=== PATIENT | female | born 1950 | race Caucasian/White ===

== ENCOUNTER → 2019-09-17 15:42 | Outpatient (CLI) | payer MEDICARE, SELFPAY ==
[2017-02-25 17:53] VITALS: BMI 21.4
--- NOTE | 2019-09-17 15:18 | MASS_PTH ---
PATIENT: GONZALO PAK LOC: [facility] U#:[id number] AGE/SX: 75/F ROOM: RE09/17/[address]: Dr. Wilian Cardenas MD : 1950 BED: DIS: SPEC #: [id number] RECD: 09/17/19 15:32 STATUS: THERESA RIVAS #: [id number] DAVID: 09/17/19 15:[address]: Wilian Cardenas DEPT: SURGICAL PATHOLOGY RECD BY: Salima Nicholson ENTERED: 09/20/19 08:00 SP TYPE: Mass OTHR DR: Dr. Luis Velazco MD Tissues: Ear, NOS Procedures: Special Stain Group I Surgery Specimen Level IV GMS Stain (control) HEADER OPERATION: PRE-OP DIAGNOSIS: Mass in left ear TISSUE SUBMITTED: Left ear MICROSCOPIC DIAGNOSIS Mass of left ear, biopsy: Hyperkeratosis and focal acanthosis. Ulceration with associated acute inflammation and granulation. Negative for fungal organisms. See comment. AM:jeanna 09/21/19 COMMENT GMS stain with matched control was used in the evaluation of this case and is negative for fungal organisms. MICROSCOPIC DESCRIPTION Slides are reviewed. GROSS DESCRIPTION Received in fixative is one container labeled with the patient's name and designated left ear. The specimen consists of two fragments of cardozo-white skin and soft tissue that in aggregate measure 0.3 x 0.3 x 0.1 cm. The specimen is totally submitted in one cassette. / ALANIS:jeanna 09/20/19 TC:2 CPT: 68744, [id number]
== END ==
PROVIDERS: PCP Family Medicine; Referring Provider Otolaryngology; Visit Provider Otolaryngology
DX: H93.8X2 Other specified disorders of left ear (principal)
CPT/HCPCS: 88305; 88312

== ENCOUNTER 2020-07-29 01:49 | Emergency (ER) | payer MEDICARE, MEDICAID, SELFPAY ==
[2020-07-29 01:49] VITALS: BP 112/85; PULSE 88; RESP 20; TEMP 36.3; O2SAT 100; BMI 21.2
--- NOTE | 2020-07-29 01:52 | RAD_ITS ---
STUDY: X-RAY - RIGHT SHOULDER REASON FOR EXAM: Female, 70 years old. S/P FALL -- C/O RT SHOULDER PAIN TECHNIQUE: 3 view(s) of the shoulder. COMPARISON: None. FINDINGS: Normal glenohumeral articulation. Normal acromioclavicular joint. Normal acromion. There is a markedly displaced fracture in the proximal metaphysis of the right humerus. The soft tissue structures are unremarkable. Normal visualized pulmonary apex. RAD/Shoulder min 2 Views IMPRESSION: There is a markedly displaced fracture in the proximal metaphysis of the right humerus. Electronically Signed: Eleuterio Nguyen MD at 2:25 EST Tel , Service support ,
--- NOTE | 2020-07-29 01:53 | ED.DCSUM_ITS ---
History of Present Illness Chief Complaint: Upper Extremity Injury Informant: Patient Onset: Today Context: Sudden Onset Timing: Continuous Current Severity: Moderate Maximum Severity: Severe Narrative: Patient is a 70-year-old female with medical history significant for hypertension, hyperlipidemia, and smoking who presents to the emergency department after a fall. Patient was at her daughter's house. She states that she slipped on ice and fell backwards. She landed directly on her right shoulder. She did not strike her head or lose consciousness. She states since the fall, she has had increasing pain in her shoulder. She states that hurts to move in any way. She is never had surgery on the shoulder. She denies any history of dislocation. Prior similar symptoms: No Recent Illness/Hospitalization: No Past Medical History - Allergies and Home Meds Allergies/Adverse Reactions: Allergies No Known Allergies Allergy (Verified 07/29/20 01:54) Primary Care Physician: Luis Velazco MD [Primary Care Provider] - Prior records reviewed: Yes Past Medical History: - - Hypertension, hyperlipidemia Surgical History: appendectomy, cholecystectomy, hysterectomy, tonsillectomy, - - Small bowel resection x 1 (SBO). Smoking Status: Current every day smoker - Family History Maternal Family History: Reports: No pertinent history Paternal Family History: Reports: No pertinent history Review of Systems General: Denies: Chills, Fever, Sweats Eyes: Denies: Visual changes - bilaterally, Diplopia ENT: Denies: Rhinorrhea, Sore throat Cardiovascular: Denies: Chest pain, Palpitations Respiratory: Denies: Dyspnea, Cough, Dyspnea on exertion Gastrointestinal: Denies: Abdominal pain, Nausea, Vomiting, Diarrhea, Melena, Hematochezia Genitourinary: Denies: Dysuria, Hematuria, Frequency Musculoskeletal: Denies: Back pain, Extremity Pain Skin: Denies: Rash, Wounds Neurological: Denies: Headache, Weakness, Numbness Physical Exam Vital Signs/Narrative: Vital Signs Temp Pulse Resp BP Pulse Ox 07/29/20 01:49 97.3 F L 88 20 H 112/85 H 100 Inital Vital Signs reviewed: Yes General: Well nourished, Well developed, No Acute Distress Head: Normocephalic, Atraumatic Eyes: Perrl, EOMI ENT: Moist mucous membranes, No rhinorrhea Neck: Supple, Nontender Cardiovascular: Regular rate, Regular rhythm, No murmurs Respiratory: No distress, CTA bilaterally, Chest nontender Abdomen: Soft, Nontender, Nondistended, Normal bowel sounds Back: Nontender, Normal Inspection Extremities: No edema, Tenderness - Tenderness to palpation over the shoulder. No obvious dislocation. 2+ symmetric pulses of the upper extremity. Axillary n erve is preserved. Guards against range of motion secondary to pain. Skin: Normal color, No rash Neurological: Alert, Oriented x3, Cranial nerves II-XII grossly intact, Normal Strength, Normal Sensation Psychological: Normal affect, Normal Mood Diagnostic/Tx/Re-eval Clinical Impression(s) from Imaging Studies Shoulder X-Ray 07/29/20 01:52 IMPRESSION: There is a markedly displaced fracture in the proximal metaphysis of the right humerus. Electronically Signed: Eleuterio Nguyen MD at 2:25 EST Tel , Service support , - Medical Decision Making The patient presents with shoulder pain after fall. Her axillary nerve is preserved. Her pulses are normal. There is no compartment tenderness or fullness. Plain films were obtained. There was reviewed by both myself and the radiologist. She does have a proximal humerus fracture with an upward shift of the humerus. The actual shoulder joint is seated without dislocation. I did discuss this fracture with Dr. Rodriguez. He agrees that attempting any manipulation would likely not improve the outcome as there is no bone purchase that I would be able to formally reduce. He agreed with sling placement to gravity and pain control. The patient will be discharged with outpatient orthopedic follow-up. Impression 1. Closed displaced proximal humerus fracture ED Disposition - Plan for ED Patient: Instructions: ED Fracture, Shoulder Prescriptions: Oxycodone HCl/Acetaminophen [Percocet 5/325] 1 tab PO Q6H PRN PRN 5 Days #20 tab PRN Reason: Pain/Inflammation Prescription Printed Referrals: Cleveland Rodriguez MD [STAFF PHYSICIAN] - 3-5 Days
[2020-07-29] MEDS: HYDROmorphone 1 MG/ML Syringe IM (02:12)
[2020-07-29] MEDS: oxyCODONE 5 MG Tablet 10 MG PO (03:18)
[2020-07-29 03:22] VITALS: BP 125/83; PULSE 86; RESP 16; O2SAT 93
== END 2020-07-29 03:37 | disposition home or self-care (01) ==
PROVIDERS: Emergency Provider Emergency Medicine; PCP Family Medicine
DX: S42.201A Unspecified fracture of upper end of right humerus, initial encounter for closed fracture (principal); W00.0XXA Fall on same level due to ice and snow, initial encounter; E78.5 Hyperlipidemia, unspecified; I10 Essential (primary) hypertension; Z90.49 Acquired absence of other specified parts of digestive tract; Z90.710 Acquired absence of both cervix and uterus; F17.200 Nicotine dependence, unspecified, uncomplicated
CPT/HCPCS: 73030; 96372; 99285

== ENCOUNTER 2020-12-28 13:41 | Inpatient (IN) | payer MEDICARE, SELFPAY ==
[2020-12-28] VITALS (13 sets, daily range): BP systolic 76–121; BP diastolic 54–97; PULSE 109–128; RESP 14–25; TEMP 36.1–37.2; O2SAT 95–100; BMI 22.1; BMI 21.2
--- NOTE | 2020-12-28 14:04 | NURSING ---
NO OLD EKGS
[2020-12-28] MEDS: 0.9% Normal Saline 1,000 ML 1000 ML IV (14:13)
--- NOTE | 2020-12-28 14:13 | RAD_ITS ---
STUDY: X-RAY CHEST REASON FOR EXAM: Female, 70 years old. Weakness TECHNIQUE: Single AP portable view of the chest. COMPARISON: Comparison is made with prior study 02/27/2017. FINDINGS: EKG electrodes are seen. The lungs are clear and expanded. There is no demonstrated pleural abnormality. Normal size heart. Normal mediastinum and pete. Normal visualized pulmonary arteries. There is atherosclerotic calcification of the aortic arch with tortuosity. There is a mild dextroscoliosis of the thoracic spine. Status post right shoulder replacement. There is no demonstrated abnormality of the visualized soft tissue structures of the upper abdomen. RAD/Chest 1 View (Portable) IMPRESSION: No acute abnormality is seen. Electronically Signed: Anthony Melchor MD at 15:01 EDT , Service support ,
--- NOTE | 2020-12-28 14:14 | EKG12_ITS ---
Test Reason : UNRESPONSIVE Blood Pressure : / mmHG Vent. Rate : 128 BPM Atrial Rate : 128 BPM P-R Int : 100 ms QRS Dur : 082 ms QT Int : 302 ms P-R-T Axes : 016 047 -50 degrees QTc Int : 440 ms Sinus tachycardia with short VT Nonspecific ST and T wave abnormality Abnormal ECG Confirmed by BALDEV MAIER, SHANTELL ([id number]), state editor BELTRAN ARELLANO ([id number]) on 12/29/2020 1:06:04 PM Referred By: PHIL Confirmed By:SHANTELL DE PAZ MD
--- NOTE | 2020-12-28 14:15 | EDS_ITS ---
HPI History of Present Illness Chief Complaint: Weakness Informant: patient Onset/Context/Timing Onset: Weeks Context: Gradual Onset Timing: Continuous Quality: Weakness Location: Generalized Worsened by: Nothing Relieved by: Nothing Narrative Narrative: Patient presents with generalized weakness that has been getting worse over the past few weeks. Patient states she is having difficulty ambulating due to the weakness. Patient states she feels weak all over. Patien t states nothing makes it better nothing makes it worse. Patient admits to some recent diarrhea and nausea. Patient denies any melena or hematochezia. Patient admits to some shortness of breath and occasional palpitations. Patient admits to history of alcohol abuse but has not had any alcohol in the last 4 days. Patient denies any tremors or seizures. [facility] Medical History (Updated 12/28/20 @ 17:40 by Ximena Infante) Alcoholism Anxiety Depression GERD (gastroesophageal reflux disease) HTN (hypertension) Hx of small bowel obstruction Home Medications atorvastatin 10 mg PO QHS 02/25/17 [History Last Taken 2 Days Ago ~12/26/20] omeprazole 40 mg PO BID 02/25/17 [History Last Taken 2 Days Ago ~12/26/20] venlafaxine 150 mg PO DAILY 02/25/17 [History Last Taken 2 Days Ago ~12/26/20] bupropion HCl 75 mg PO BID 07/29/20 [History Last Taken 2 Days Ago ~12/26/20] lisinopril 40 mg PO BID 07/29/20 [History Last Taken 2 Days Ago ~12/26/20] spironolactone 25 mg PO DAILY 07/29/20 [History Last Taken 2 Days Ago ~12/26/20] buspirone 15 mg PO BID 12/28/20 [History Last Taken 2 Days Ago ~12/26/20] metoprolol succinate 100 mg PO DAILY 12/28/20 [History Last Taken 2 Days Ago ~12/26/20] venlafaxine 75 mg PO DAILY 12/28/20 [History Last Taken 2 Days Ago ~12/26/20] Allergy/AdvReac Type Severity Reaction Status Date / Time No Known Allergies Allergy Verified 07/29/20 01:54 Surgical History (Updated 12/28/20 @ 17:37 by Ximena Infante) H/O shoulder replacement History of appendectomy History of hemorrhoidectomy History of hysterectomy History of intestinal surgery Hx of cholecystectomy Social History Smoking Status: Current every day smoker tobacco type: cigarettes ROS ROS ED Constitutional Constitutional ED: Denies chills or fever(s) Eyes Eyes: Denies blurry vision or change in vision ENT ENT ED: Denies rhinorrhea or sore throat Cardiovascular Cardiovascular: Reports palpitations; Denies chest pain Respiratory/Chest Respiratory/Chest: Reports dyspnea; Denies cough Gastrointestinal Gastrointestinal: Reports diarrhea and nausea; Denies vomiting Genitourinary Genitourinary ED: Denies dysuria or hematuria Musculoskeletal Musculoskeletal: Reports arthralgias and back pain Integumentary Denies abscess or rash Neurologic Neurologic: Reports headache(s) and weakness Allergic/Immunologic Allergic/Immunologic ED: Denies mouth swelling or urticaria EXAM Physical Exam Const Vital Signs: 12/28/20 13:42 12/28/20 13:46 12/28/20 14:56 Temperature 98.2 F Temperature Source Temporal Pulse Rate 126 H 128 H 121 H Respiratory Rate 18 14 22 H Respiratory Effort Respiratory Pattern Blood Pressure 89/75 L 76/54 L 77/55 L Blood Pressure Mean 79 61 62 Pulse Ox 96 99 95 Oxygen Delivery Method Room Air Room Air Room Air Oxygen Flow Rate (L/min) 12/28/20 14:57 12/28/20 15:42 12/28/20 16:10 Temperature 96.9 F L Temperature Source Temporal Pulse Rate 119 H 109 H Respiratory Rate 14 14 Respiratory Effort Normal Respiratory Pattern Normal Blood Pressure 103/83 H 121/74 H Blood Pressure Mean 89 89 Pulse Ox 100 100 Oxygen Delivery Method Nasal Cannula Nasal Cannula Oxygen Flow Rate (L/min) 1 2 12/28/20 17:18 12/28/20 17:27 Temperature 98.4 F Temperature Source Temporal Pulse Rate 118 H 117 H Respiratory Rate 15 18 Respiratory Effort Respiratory Pattern Blood Pressure 121/85 H 109/80 Blood Pressure Mean 97 89 Pulse Ox 98 98 Oxygen Delivery Method Room Air Room Air Oxygen Flow Rate (L/min) Positive well nourished and well developed General Appearance ED: well developed HEENT Reports moist mucous membranes Eyes PERRL Neck supple and no JVD Chest Wall inspection of chest normal and palpation of chest normal Resp normal respiratory effort Auscultation: diminished lung sounds diffuse Cardio regular rhythm and no murmurs Rate: tachycardic GI normal to inspection, nondistended, normoactive bowel sounds and non-tender Palpation: soft Neuro oriented x3, CN's II-XII intact bilaterally and no sensory deficits noted Sensorium / Orientation: alert Motor Exam: strength 5/5 throughout Psych mental status grossly normal MDM MDM MDM Narrative Medical decision making narrative: Patient was given 2 L of normal saline IV. CBC shows a normal white blood cell count. There is a mild anemia with a hemoglobin of 10.5 hematocrit 31.1. Platelets were normal. Comprehensive metabolic profile shows sodium of 131 and chloride of 91. BUN was 40 and creatinine was 1.78. Anion gap was slightly elevated at 16. Lactate was 4. Lipase was elevated at 1417. Urinalysis shows leukocyte esterase of 25 with positive nitrites and 2+ bacteria. There are 0-5 white blood cells and 0-5 epithelial cells. Portable 1 view chest x-ray was obtained. On my interpretation, lung aponte are clear. There is normal cardiac silhouette. Bony thorax is normal. There is no acute process noted. Radiologist also interpreted the x-ray and agrees. CT scan of the brain was obtained. There is no acute intracranial abnormality. This was interpreted by the radiologist and reviewed by myself. EKG was obtained. On my interpretation, it showed a normal sinus rhythm with a rate of 128. VA interval, QRS interval, and QTc intervals were all normal. Schlater was normal. There are nonspecific ST-T wave changes. Patient was given a dose of Rocephin here. Case was discussed with the hospitalist. He will admit the patient to his service. Patient understood and was agreeable with the plan. All questions were answered. Lab Data Attestation: I reviewed the patient's lab results. Labs: Laboratory Results - last 24 hr 12/28/20 12/28/20 12/28/20 13:45 13:45 13:45 WBC Cancelled Corrected WBC Cancelled RBC Cancelled Hgb Cancelled Hct Cancelled MCV Cancelled MCH Cancelled MCHC Cancelled RDW Std Deviation Cancelled RDW Coeff of Jus Cancelled Plt Count Cancelled MPV Cancelled Immature Gran % (Auto) Cancelled Neut % (Auto) Cancelled Lymph % (Auto) Cancelled Snyder % (Auto) Cancelled Eos % (Auto) Cancelled Baso % (Auto) Cancelled Absolute Neuts (auto) Cancelled Absolute Lymphs (auto) Cancelled Total Counted Cancelled Neutrophils % (Manual) Cancelled Band Neutrophils % Cancelled Lymphocytes % (Manual) Cancelled Monocytes % (Manual) Cancelled Eosinophils % (Manual) Cancelled Basophils % (Manual) Cancelled Metamyelocytes % Cancelled Myelocytes % Cancelled Promyelocytes % Cancelled Blast Cells % Cancelled Plasma Cell % (Manual) Cancelled Other Cells % Cancelled Nucleated RBC % Cancelled Nucleated RBCs/100 WBC Cancelled Differential Comment Cancelled Diff Path Review Cancelled Hypersegmented Neuts Cancelled Atypical Lymphocytes Cancelled Reactive Lymphocytes Cancelled Smudge Cells Cancelled Toxic Granulation Cancelled Toxic Vacuolation Cancelled Dohle Bodies Cancelled Jeane Rods Cancelled Platelet Estimate Cancelled Plt Morphology Comment Cancelled RBC Morphology Cancelled Polychromasia Cancelled Hypochromasia Cancelled Poikilocytosis Cancelled Basophilic Stippling Cancelled Anisocytosis Cancelled Microcytosis Cancelled Macrocytosis Cancelled Spherocytes Cancelled Sickle Cells Cancelled Target Cells Cancelled Tear Drop Cells Cancelled Ovalocytes Cancelled Stomatocytes Cancelled [place] Bodies Cancelled Ava Cells Cancelled Bite Cells Cancelled Crenated Cell Cancelled Acanthocytes (Spur) Cancelled Rouleaux Cancelled Schistocytes Cancelled PT INR APTT Sodium 131 L Potassium 4.2 Chloride 91 L Carbon Dioxide 24.0 Anion Gap 16 H BUN 40 H Creatinine 1.78 H Estim Creat Clear Calc 24.67 Est GFR (MDRD) Af Amer 36 L Est GFR (MDRD) Non-Af 30 L BUN/Creatinine Ratio 22.5 H Glucose 180 H Lactic Acid 4.0 H* Calcium 9.9 Total Bilirubin 0.90 AST 176 H ALT 78 H Alkaline Phosphatase 186 H Troponin I High Sens 37.5 Total Protein 7.0 Albumin 3.3 Globulin 3.7 Albumin/Globulin Ratio 0.9 Lipase 1417 H Urine Color Urine Clarity Urine pH Ur Specific [place] Urine Protein Urine Glucose (UA) Urine Ketones Urine Occult Blood Urine Nitrite Urine Bilirubin Urine Urobilinogen Ur Leukocyte Esterase Urine RBC Urine WBC Ur Squamous Epith Cells Urine Bacteria Urine Mucus 12/28/20 12/28/20 12/28/20 14:20 14:50 14:50 WBC 5.0 Corrected WBC RBC 3.24 L Hgb 10.5 L Hct 31.1 L MCV 96.0 MCH 32.4 H MCHC 33.8 RDW Std Deviation 65.9 H RDW Coeff of Jus 18.6 H Plt Count 185 MPV 10.9 Immature Gran % (Auto) 0.800 Neut % (Auto) 64.6 Lymph % (Auto) 19.8 Snyder % (Auto) 13.6 H Eos % (Auto) 0.2 Baso % (Auto) 1.0 Absolute Neuts (auto) 3.2 Absolute Lymphs (auto) 0.99 Total Counted Neutrophils % (Manual) Band Neutrophils % Lymphocytes % (Manual) Monocytes % (Manual) Eosinophils % (Manual) Basophils % (Manual) Metamyelocytes % Myelocytes % Promyelocytes % Blast Cells % Plasma Cell % (Manual) Other Cells % Nucleated RBC % 0 Nucleated RBCs/100 WBC Differential Comment SCANNED Diff Path Review Hypersegmented Neuts Atypical Lymphocytes Reactive Lymphocytes Smudge Cells Toxic Granulation Toxic Vacuolation Dohle Bodies Jeane Rods Platelet Estimate Plt Morphology Comment RBC Morphology N CHROM Polychromasia Hypochromasia Poikilocytosis Basophilic Stippling Anisocytosis 1+ Microcytosis Macrocytosis 1+ Spherocytes Sickle Cells Target Cells Tear Drop Cells Ovalocytes Stomatocytes [place] Bodies Ava Cells Bite Cells Crenated Cell Acanthocytes (Spur) Rouleaux Schistocytes PT Cancelled 12.5 INR Cancelled 1.0 APTT Cancelled 25.7 Sodium Potassium Chloride Carbon Dioxide Anion Gap BUN Creatinine Estim Creat Clear Calc Est GFR (MDRD) Af Amer Est GFR (MDRD) Non-Af BUN/Creatinine Ratio Glucose Lactic Acid Calcium Total Bilirubin AST ALT Alkaline Phosphatase Troponin I High Sens Total Protein Albumin Globulin Albumin/Globulin Ratio Lipase Urine Color Urine Clarity Urine pH Ur Specific [place] Urine Protein Urine Glucose (UA) Urine Ketones Urine Occult Blood Urine Nitrite Urine Bilirubin Urine Urobilinogen Ur Leukocyte Esterase Urine RBC Urine WBC Ur Squamous Epith Cells Urine Bacteria Urine Mucus 12/28/20 16:00 WBC Corrected WBC RBC Hgb Hct MCV MCH MCHC RDW Std Deviation RDW Coeff of Jus Plt Count MPV Immature Gran % (Auto) Neut % (Auto) Lymph % (Auto) Snyder % (Auto) Eos % (Auto) Baso % (Auto) Absolute Neuts (auto) Absolute Lymphs (auto) Total Counted Neutrophils % (Manual) Band Neutrophils % Lymphocytes % (Manual) Monocytes % (Manual) Eosinophils % (Manual) Basophils % (Manual) Metamyelocytes % Myelocytes % Promyelocytes % Blast Cells % Plasma Cell % (Manual) Other Cells % Nucleated RBC % Nucleated RBCs/100 WBC Differential Comment Diff Path Review Hypersegmented Neuts Atypical Lymphocytes Reactive Lymphocytes Smudge Cells Toxic Granulation Toxic Vacuolation Dohle Bodies Jeane Rods Platelet Estimate Plt Morphology Comment RBC Morphology Polychromasia Hypochromasia Poikilocytosis Basophilic Stippling Anisocytosis Microcytosis Macrocytosis Spherocytes Sickle Cells Target Cells Tear Drop Cells Ovalocytes Stomatocytes [place] Bodies [place] Cells Bite Cells Crenated Cell Acanthocytes (Spur) Rouleaux Schistocytes PT INR APTT Sodium Potassium Chloride Carbon Dioxide Anion Gap BUN Creatinine Estim Creat Clear Calc Est GFR (MDRD) Af Amer Est GFR (MDRD) Non-Af BUN/Creatinine Ratio Glucose Lactic Acid Calcium Total Bilirubin AST ALT Alkaline Phosphatase Troponin I High Sens Total Protein Albumin Globulin Albumin/Globulin Ratio Lipase Urine Color Yellow Urine Clarity Sl. Cloudy Urine pH 5.0 Ur Specific [place] 1.005 Urine Protein Negative Urine Glucose (UA) Normal Urine Ketones Negative Urine Occult Blood 10 H Urine Nitrite Positive H Urine Bilirubin Negative Urine Urobilinogen Normal Ur Leukocyte Esterase 25 H Urine RBC 0-5 SEEN Urine WBC 0-5 SEEN Ur Squamous Epith Cells 0-5 SEEN Urine Bacteria 2+ Urine Mucus 0 SEEN Radiography Chest X-Ray - ED: 1 View, Read by ED Physician, Read by Radiologist and Normal Diagnostic Testing: Radiology Impression Chest X-Ray 12/28/20 14:13 IMPRESSION: No acute abnormality is seen. Electronically Signed: Anthony Melchor MD at 15:01 EDT , Service support , Brain CT 12/28/20 15:04 IMPRESSION: Chronic involutional changes of the brain. Electronically Signed: Anthony Melchor MD at 15:14 EDT , Service support , EKG Initial EKG: Attestation: I personally reviewed and interpreted this EKG as follows: Interpretation: Sinus Tachycardia (128) and Non-Specific ST Changes Prior EKG tracings: not available for review Treatment and Re-Evaluation Vital Sign Attestation:: Vital signs were reviewed prior to admission. Patient is still tachycardic however this is improved. Patient's blood pressure is stable. Discharge Plan Dx/Rx/DC Orders Clinical Impression: Septic shock, Acute alcoholic pancreatitis, Urinary tract infection Disposition [facility]
--- NOTE | 2020-12-28 14:34 | NURSING ---
CBCD AND COAGS HEMOLIZED
[2020-12-28 14:45] LABS: ALB/GLOB Ratio 0.9 RATIO (0.9-2.4); AST(SGOT) 176 U/L (15-37); Alanine Aminotransfer ALT/SGPT 78 U/L (13-56); Albumin, Serum 3.3 g/dL (3.2-5.0); Alkaline Phosphatase 186 U/L (45-117); Anion Gap 16 (5-15); BUN 40 mg/dL (7-18); BUN/Creat Ratio 22.5 RATIO (10-20); Calcium,Total 9.9 mg/dL (8.5-10.1); Chloride 91 mmol/L (98-107); Creatinine, Serum 1.78 mg/dL (0.55-1.02); EST Glomerular Filtration Rate 30 mL/min (>60); Est Glom Filt Rate - Afr Amer 36 mL/min (>60); Estimated Creatinine Clearance 24.67 ml/min; Globulin 3.7 g/dL (2.2-4.2); Glucose 180 mg/dL (74-106); Lipase 1417 U/L (73-393); Potassium 4.2 mmol/L (3.5-5.1); Sodium Level 131 mmol/L (136-145); Troponin-I HS 37.5 pg/mL (3.0-53.7)
[2020-12-28 14:57] LABS: Absolute Lymphocyte Count 0.99 X10^3/uL (0.83-4.51); Absolute Neutrophil Count 3.2 X10^3/uL (2.0-7.7); Basophil# 0.05 X10^3/uL; Eosinophil# 0.01 X10^3/uL; Eosinophils% 0.2 % (0-5); Hematocrit 31.1 % (37-47); Hemoglobin 10.5 g/dL (12.0-15.0); Lymphocyte # 0.99 X10^3/ul (0.83-4.51); Lymphocyte % 19.8 % (19-41); Mean Corp Hgb Conc 33.8 g/dL (32-36); Mean Corpuscular Hgb 32.4 pg (27.0-32.0); Mean Platelet Vol. 10.9 fl (6.2-12.0); Monocyte# 0.68 X10^3/uL; Monocyte% 13.6 % (0-10); NRBC Flagged by Analyzer 0 % (0-5); Neutrophil # 3.23 X10^3/uL (2.7-7.7); Neutrophil % 64.6 % (47-70); POSITIVE MORPHOLOGY YES; Platelet Count 185 K/mm3 (150-450); RBC Distribution Width CV 18.6 % (11.6-14.6); RBC Distribution Width SD 65.9 fl (35.1-43.9); Red Blood Count 3.24 M/mm3 (4.2-5.4)
[2020-12-28 14:59] LABS: Differential Indicated SCAN CRITERIA MET
--- NOTE | 2020-12-28 15:04 | CT_ITS ---
STUDY: CT BRAIN WITHOUT CONTRAST REASON FOR EXAM: Female, 70 years old. Weakness RADIATION DOSAGE (If Supplied By Facility): CTDIvol = ( 44.99 ) mGy, DLP = ( 796.11 ) mGycm TECHNIQUE: Transaxial CT imaging of the brain was performed without administration of intravenous contrast material. Individualized dose optimization techniques were used for this CT. COMPARISON: No relevant priors. FINDINGS: Normal soft tissue structures. Normal calvarium. There is mild cerebral atrophy with widening of the extra-axial spaces and ventricular dilatation. There are areas of decreased attenuation within the white matter tracts of the supratentorial brain, consistent with microvascular disease changes. There are small punctate calcifications of the basal ganglia which are seen in the aging brain as a normal variant. Normal brainstem. Normal cerebellum. There is no intracranial hemorrhage. There are no findings of an acute ischemic infarction. Normal visualized paranasal sinuses. CT/Brain/Head without Contrast IMPRESSION: Chronic involutional changes of the brain. Electronically Signed: Anthony Melchor MD at 15:14 EDT , Service support ,
[2020-12-28 15:05] LABS: Prothrombin Time (Protime)PT. 12.5 SECONDS (11.7-14.9)
[2020-12-28 15:06] LABS: Partial Thromboplast Time 25.7 Seconds (24.1-36.2)
[2020-12-28 15:34] LABS: Anisocytosis 1+; Differential Comment SCANNED; Macrocytosis 1+
[2020-12-28 15:35] LABS: Red Cell Morphology N CHROM NORMAL (NORM C&C)
[2020-12-28] MEDS: 0.9% Normal Saline 1,000 ML 999 ML IV (15:41)
[2020-12-28] MEDS: Loperamide 2 MG Capsule PO ×3 (16:16→23:20)
[2020-12-28 16:18] LABS: Mucous, Urine 0 SEEN /hpf (<or=2+)
[2020-12-28 16:25] LABS: Color, Urine Yellow (Yellow); Glucose, Dipstick Normal (Normal); Ketone-Dipstick Negative (Negative); Leukocyte Esterase-Dipstick 25 /ul (Negative); Nitrite-Dipstick Positive (Negative); Occult Blood-Urine 10 /ul (Negative); Protein-Dipstick Negative (Negative); Specific Gravity, Urine 1.005 (1.002-1.030); Urine Bilirubin Dipstick Negative (Negative); Urine Clarity Sl. Cloudy (Clear); Urine Urobilinogen Normal (Normal)
[2020-12-28 16:40] LABS: Bacteria 2+ /hpf (None Seen); Red Blood Cells-Urine 0-5 SEEN /hpf (0-5); Squamous Epithelial Cells - UA 0-5 SEEN /hpf (5-10); White Blood Cells 0-5 SEEN /hpf (0-5)
[2020-12-28] MEDS: Ceftriaxone 1 GM/50 ML BAG IV (17:27)
--- NOTE | 2020-12-28 18:07 | NURSING ---
ICU ASHELFA[facility] SEPTIC SHOCK, ACUTE PANCREATITIS
--- NOTE | 2020-12-28 18:16 | HP.PCM.HOS_ITS ---
Documented by User: Rosalie Crain NP, [employer]-[facility] 12/28/20 18:39 HPI - General General Date of Admission: 12/28/20 Chief Complaint: Weakness HPI Narrative GONZALO PAK, is a 70 F who presents to the emergency room due to weakness. Patient states this has been ongoing for the past month however has been progressively worsening. She reports she is having difficulty caring for herself due to significant weakness and reports recent falls at home. She describes scrapes and bruises however denies significant injury or pain related to falls. Patient has a history of chronic alcohol use and states she previously drank half a gallon of vodka per day and quit 4 days ago. She reports intermittent shakes however denies other withdrawal symptoms. She reports diarrhea which has been intermittent for several weeks and is occasionally mucousy in nature. She denies blood in stool. Reports poor appetite and nausea, denies emesis. Denies abdominal pain. Denies urinary symptoms. Denies fever, chills. She has a past medical history of hypertension, hyperlipidemia, anxiety, depression, GERD, history of small bowel obstruction, tobacco dependence, alcohol abuse. FORMERLY [facility], LATER [facility] Medical History (Updated 12/28/20 @ 18:27 by Rosalie Crain NP, [employer]) Alcoholism Anxiety Depression GERD (gastroesophageal reflux disease) HTN (hypertension) Hx of small bowel obstruction Home Medications atorvastatin 10 mg PO QHS 02/25/17 [History Last Taken 2 Days Ago ~12/26/20] omeprazole 40 mg PO BID 02/25/17 [History Last Taken 2 Days Ago ~12/26/20] venlafaxine 150 mg PO DAILY 02/25/17 [History Last Taken 2 Days Ago ~12/26/20] bupropion HCl 75 mg PO BID 07/29/20 [History Last Taken 2 Days Ago ~12/26/20] lisinopril 40 mg PO BID 07/29/20 [History Last Taken 2 Days Ago ~12/26/20] spironolactone 25 mg PO DAILY 07/29/20 [History Last Taken 2 Days Ago ~12/26/20] buspirone 15 mg PO BID 12/28/20 [History Last Taken 2 Days Ago ~12/26/20] metoprolol succinate 100 mg PO DAILY 12/28/20 [History Last Taken 2 Days Ago ~12/26/20] venlafaxine 75 mg PO DAILY 12/28/20 [History Last Taken 2 Days Ago ~12/26/20] Allergy/AdvReac Type Severity Reaction Status Date / Time No Known Allergies Allergy Verified 07/29/20 01:54 Family History (Updated 12/28/20 @ 18:22 by Rosalie Crain NP, [employer]) Father Cancer Lung and stomach Mother Diabetes Surgical History (Updated 12/28/20 @ 18:22 by Rosalie Crain NP, [employer]) H/O shoulder replacement History of appendectomy History of hemorrhoidectomy History of hysterectomy History of intestinal surgery Hx of cholecystectomy Hx of tonsillectomy Social History (Updated 12/28/20 @ 18:24 by Rosalie Crain NP, [employer]) household members: other details: Lives alone Smoking Status: Former smoker quit date: 12/21/20 alcohol intake: former details: Quit 4 days ago, previous daily half gallon vodka per day use substance use type: does not use ROS Constitutional Constitutional: Reports fatigue, poor appetite, weakness and other Details: falls at home related to weakness ; Denies change in weight, chills or fever(s) Cardiovascular Cardiovascular: Denies chest pain, edema, lightheadedness, palpitations or syncope Respiratory/Chest Respiratory/Chest: Denies cough, dyspnea, productive cough, shortness of breath at rest, shortness of breath with exertion or wheezing Gastrointestinal Gastrointestinal: Reports diarrhea, nausea and other Details: Occasional mucus in stool ; Denies abdominal pain, constipation or vomiting Genitourinary Genitourinary: Denies burning urination, difficulty urinating, dysuria, hematuria, urinary frequency, urinary incontinence or urinary urgency Musculoskeletal Musculoskeletal: Denies back pain, joint pain or muscle weakness Integumentary Integumentary: Denies erythema, lesions, rash or wounds Neurologic Neurologic: Denies abnormal speech, confusion, dizziness, focal weakness, numbness, paresthesias, seizure-like activity or syncope Psychiatric Psychiatric: Reports anxiety and depression Hematologic/Lymphatic Hematologic/Lymphatic: Denies anemia, easy bleeding or easy bruising Allergic/Immunologic Allergic/Immunologic: Denies hives or asthma Vital Signs Vital Signs Vital Signs: 12/28/20 13:42 12/28/20 13:46 12/28/20 14:56 Temperature 98.2 F Temperature Source Temporal Pulse Rate 126 H 128 H 121 H Respiratory Rate 18 14 22 H Respiratory Effort Respiratory Pattern Blood Pressure 89/75 L 76/54 L 77/55 L Blood Pressure Mean 79 61 62 Pulse Ox 96 99 95 Oxygen Delivery Method Room Air Room Air Room Air Oxygen Flow Rate (L/min) 12/28/20 14:57 12/28/20 15:42 12/28/20 16:10 Temperature 96.9 F L Temperature Source Temporal Pulse Rate 119 H 109 H Respiratory Rate 14 14 Respiratory Effort Normal Respiratory Pattern Normal Blood Pressure 103/83 H 121/74 H Blood Pressure Mean 89 89 Pulse Ox 100 100 Oxygen Delivery Method Nasal Cannula Nasal Cannula Oxygen Flow Rate (L/min) 1 2 12/28/20 17:18 12/28/20 17:27 12/28/20 18:09 Temperature 98.4 F 98.9 F Temperature Source Temporal Temporal Pulse Rate 118 H 117 H 119 H Respiratory Rate 15 18 25 H Respiratory Effort Respiratory Pattern Blood Pressure 121/85 H 109/80 110/77 Blood Pressure Mean 97 89 88 Pulse Ox 98 98 97 Oxygen Delivery Method Room Air Room Air Room Air Oxygen Flow Rate (L/min) Weight Weight: 125 lb 0.034 oz Body Mass Index (BMI) 22.1 Physical Exam Const alert, oriented x3 and no apparent distress Orientation / Consciousness: awake, oriented to person, oriented to place and oriented to time Nutritional Appearance: other Other Details: Appears unkempt HEENT normocephalic Mouth: dry mucous membranes Eyes PERRL and EOMs intact bilaterally Conjunctiva: conjunctiva abnormal bilateral discharge purulent Neck no lymphadenopathy Resp clear to auscultation bilaterally Auscultation: diminished lung sounds Cardio regular rate, regular rhythm and no murmurs Peripheral Pulses: pulses 2+ throughout GI normal to inspection, nondistended, normoactive bowel sounds, non-tender and non-distended Extremity normal to inspection Skin no rashes or lesions noted Skin Narrative: Scattered generalized ecchymosis Lesions: no lesions Rashes: no rashes Trauma: no lacerations or abrasions Neuro CN's II-XII intact bilaterally, no focal motor deficits, no sensory deficits noted and deep tendon reflexes 2+ bilaterally Psych mental status grossly normal Mood & Affect: flat affect Results Lab / Micro Data Result Diagrams: 12/28/20 14:50 12/28/20 13:45 Labs: Laboratory Results - last 24 hr 12/28/20 12/28/20 12/28/20 13:45 13:45 13:45 WBC Cancelled Corrected WBC Cancelled RBC Cancelled Hgb Cancelled Hct Cancelled MCV Cancelled MCH Cancelled MCHC Cancelled RDW Std Deviation Cancelled RDW Coeff of Jus Cancelled Plt Count Cancelled MPV Cancelled Immature Gran % (Auto) Cancelled Neut % (Auto) Cancelled Lymph % (Auto) Cancelled [place] % (Auto) Cancelled Eos % (Auto) Cancelled Baso % (Auto) Cancelled Absolute Neuts (auto) Cancelled Absolute Lymphs (auto) Cancelled Total Counted Cancelled Neutrophils % (Manual) Cancelled Band Neutrophils % Cancelled Lymphocytes % (Manual) Cancelled Monocytes % (Manual) Cancelled Eosinophils % (Manual) Cancelled Basophils % (Manual) Cancelled Metamyelocytes % Cancelled Myelocytes % Cancelled Promyelocytes % Cancelled Blast Cells % Cancelled Plasma Cell % (Manual) Cancelled Other Cells % Cancelled Nucleated RBC % Cancelled Nucleated RBCs/100 WBC Cancelled Differential Comment Cancelled Diff Path Review Cancelled Hypersegmented Neuts Cancelled Atypical Lymphocytes Cancelled Reactive Lymphocytes Cancelled Smudge Cells Cancelled Toxic Granulation Cancelled Toxic Vacuolation Cancelled Dohle Bodies Cancelled Jeane Rods Cancelled Platelet Estimate Cancelled Plt Morphology Comment Cancelled RBC Morphology Cancelled Polychromasia Cancelled Hypochromasia Cancelled Poikilocytosis Cancelled Basophilic Stippling Cancelled Anisocytosis Cancelled Microcytosis Cancelled Macrocytosis Cancelled Spherocytes Cancelled Sickle Cells Cancelled Target Cells Cancelled Tear Drop Cells Cancelled Ovalocytes Cancelled Stomatocytes Cancelled [place] Bodies Cancelled Ava Cells Cancelled Bite Cells Cancelled Crenated Cell Cancelled Acanthocytes (Spur) Cancelled Rouleaux Cancelled Schistocytes Cancelled PT INR APTT Sodium 131 L Potassium 4.2 Chloride 91 L Carbon Dioxide 24.0 Anion Gap 16 H BUN 40 H Creatinine 1.78 H Estim Creat Clear Calc 24.67 Est GFR (MDRD) Af Amer 36 L Est GFR (MDRD) Non-Af 30 L BUN/Creatinine Ratio 22.5 H Glucose 180 H Lactic Acid 4.0 H* Calcium 9.9 Total Bilirubin 0.90 AST 176 H ALT 78 H Alkaline Phosphatase 186 H Troponin I High Sens 37.5 Total Protein 7.0 Albumin 3.3 Globulin 3.7 Albumin/Globulin Ratio 0.9 Lipase 1417 H Urine Color Urine Clarity Urine pH Ur Specific [place] Urine Protein Urine Glucose (UA) Urine Ketones Urine Occult Blood Urine Nitrite Urine Bilirubin Urine Urobilinogen Ur Leukocyte Esterase Urine RBC Urine WBC Ur Squamous Epith Cells Urine Bacteria Urine Mucus 12/28/20 12/28/20 12/28/20 14:20 14:50 14:50 WBC 5.0 Corrected WBC RBC 3.24 L Hgb 10.5 L Hct 31.1 L MCV 96.0 MCH 32.4 H MCHC 33.8 RDW Std Deviation 65.9 H RDW Coeff of Jus 18.6 H Plt Count 185 MPV 10.9 Immature Gran % (Auto) 0.800 Neut % (Auto) 64.6 Lymph % (Auto) 19.8 [place] % (Auto) 13.6 H Eos % (Auto) 0.2 Baso % (Auto) 1.0 Absolute Neuts (auto) 3.2 Absolute Lymphs (auto) 0.99 Total Counted Neutrophils % (Manual) Band Neutrophils % Lymphocytes % (Manual) Monocytes % (Manual) Eosinophils % (Manual) Basophils % (Manual) Metamyelocytes % Myelocytes % Promyelocytes % Blast Cells % Plasma Cell % (Manual) Other Cells % Nucleated RBC % 0 Nucleated RBCs/100 WBC Differential Comment SCANNED Diff Path Review Hypersegmented Neuts Atypical Lymphocytes Reactive Lymphocytes Smudge Cells Toxic Granulation Toxic Vacuolation Dohle Bodies Jeane Rods Platelet Estimate Plt Morphology Comment RBC Morphology N CHROM Polychromasia Hypochromasia Poikilocytosis Basophilic Stippling Anisocytosis 1+ Microcytosis Macrocytosis 1+ Spherocytes Sickle Cells Target Cells Tear Drop Cells Ovalocytes Stomatocytes [place] Bodies Ava Cells Bite Cells Crenated Cell Acanthocytes (Spur) Rouleaux Schistocytes PT Cancelled 12.5 INR Cancelled 1.0 APTT Cancelled 25.7 Sodium Potassium Chloride Carbon Dioxide Anion Gap BUN Creatinine Estim Creat Clear Calc Est GFR (MDRD) Af Amer Est GFR (MDRD) Non-Af BUN/Creatinine Ratio Glucose Lactic Acid Calcium Total Bilirubin AST ALT Alkaline Phosphatase Troponin I High Sens Total Protein Albumin Globulin Albumin/Globulin Ratio Lipase Urine Color Urine Clarity Urine pH Ur Specific [place] Urine Protein Urine Glucose (UA) Urine Ketones Urine Occult Blood Urine Nitrite Urine Bilirubin Urine Urobilinogen Ur Leukocyte Esterase Urine RBC Urine WBC Ur Squamous Epith Cells Urine Bacteria Urine Mucus 12/28/20 16:00 WBC Corrected WBC RBC Hgb Hct MCV MCH MCHC RDW Std Deviation RDW Coeff of Jus Plt Count MPV Immature Gran % (Auto) Neut % (Auto) Lymph % (Auto) [place] % (Auto) Eos % (Auto) Baso % (Auto) Absolute Neuts (auto) Absolute Lymphs (auto) Total Counted Neutrophils % (Manual) Band Neutrophils % Lymphocytes % (Manual) Monocytes % (Manual) Eosinophils % (Manual) Basophils % (Manual) Metamyelocytes % Myelocytes % Promyelocytes % Blast Cells % Plasma Cell % (Manual) Other Cells % Nucleated RBC % Nucleated RBCs/100 WBC Differential Comment Diff Path Review Hypersegmented Neuts Atypical Lymphocytes Reactive Lymphocytes Smudge Cells Toxic Granulation Toxic Vacuolation Dohle Bodies Jeane Rods Platelet Estimate Plt Morphology Comment RBC Morphology Polychromasia Hypochromasia Poikilocytosis Basophilic Stippling Anisocytosis Microcytosis Macrocytosis Spherocytes Sickle Cells Target Cells Tear Drop Cells Ovalocytes Stomatocytes [place] Bodies [place] Cells Bite Cells Crenated Cell Acanthocytes (Spur) Rouleaux Schistocytes PT INR APTT Sodium Potassium Chloride Carbon Dioxide Anion Gap BUN Creatinine Estim Creat Clear Calc Est GFR (MDRD) Af Amer Est GFR (MDRD) Non-Af BUN/Creatinine Ratio Glucose Lactic Acid Calcium Total Bilirubin AST ALT Alkaline Phosphatase Troponin I High Sens Total Protein Albumin Globulin Albumin/Globulin Ratio Lipase Urine Color Yellow Urine Clarity Sl. Cloudy Urine pH 5.0 Ur Specific [place] 1.005 Urine Protein Negative Urine Glucose (UA) Normal Urine Ketones Negative Urine Occult Blood 10 H Urine Nitrite Positive H Urine Bilirubin Negative Urine Urobilinogen Normal Ur Leukocyte Esterase 25 H Urine RBC 0-5 SEEN Urine WBC 0-5 SEEN Ur Squamous Epith Cells 0-5 SEEN Urine Bacteria 2+ Urine Mucus 0 SEEN Radiology Impression Chest X-Ray 12/28/20 14:13 IMPRESSION: No acute abnormality is seen. Electronically Signed: Anthony Melchor MD at 15:01 EDT , Service support , Brain CT 12/28/20 15:04 IMPRESSION: Chronic involutional changes of the brain. Electronically Signed: Anthony Melchor MD at 15:14 EDT , Service support , Assessment & Plan Assessment/Plan (1) Lactic acidosis: (2) Acute alcoholic pancreatitis: (3) Urinary tract infection: PLAN: 1. Generalized weakness with recurrent falls-suspect multifactorial as a result of chronic alcohol use with recent cessation, probable UTI and acute kidney injury/dehydration. Treatment per below. PT/OT. Case management consult. 2. Acute kidney injury-suspect secondary to dehydration. IV fluids, trend BMP. 3. Probable acute UTI-UA with 2+ bacteria, 25 leukocyte, positive nitrite. Negative WBC. IV Rocephin pending urine culture. 4. Lactic acidosis-suspect secondary to BALDO/dehydration. Patient is afebrile, no leukocytosis. Repeat lactic acid pending. Does not meet sepsis criteria. 5. Hypotension-suspect secondary to hypovolemia. Improved quickly with fluid resuscitation. Hold BP regimen with the exception of metoprolol with hold parameters. 6. Probable acute alcoholic pancreatitis-lipase 1417. Patient denies abdominal pain. IV fluids, clear liquids. 7. Transaminitis/elevated alk phos-suspect secondary to alcohol use, trend labs. If no improvement, consider ultrasound. 8. Mild hyponatremia-secondary to alcohol use and hypovolemia. Trend BMP. 9. Chronic alcohol dependence-states she quit 4 days ago. Prior half gallon of vodka per day. CIWA. Thiamine, folic acid, multivitamin supplementation. Juan es active withdrawal symptoms. 10. Bilateral conjunctivitis with purulent discharge-warm compresses to eyes bilaterally. Erythromycin application both eyes 3 times daily for 7 days. 11. Hypertension-continue metoprolol with hold parameters. Hold spironolactone, lisinopril. 12. Hyperlipidemia-continue statin. 13. Anxiety/depression-on bupropion, buspirone, venlafaxine. 14. GERD-continue PPI. 15. History of small bowel obstruction 16. Tobacco dependence-reports she quit 1 week ago. Encouraged continued cessation. Declines nicotine replacement. DVT prophylaxis-heparin subcu CODE STATUS: Discussed in length with patient including differences between full code, DNR CCA and DNR CC. Patient elects full CODE STATUS. This patient was seen by CHELO Chauhan under the supervision of Dr. Hale. Documented by User: Dr. Yanci Hale MD 12/28/20 19:06 FOR[facility]LY [facility], LAT[facility] Medical History (Updated 12/28/20 @ 18:27 by Rosalie Crain NP, [employer]) Alcoholism Anxiety Depression GERD (gastroesophageal reflux disease) HTN (hypertension) Hx of small bowel obstruction Home Medications atorvastatin 10 mg PO QHS 02/25/17 [History Last Taken 2 Days Ago ~12/26/20] omeprazole 40 mg PO BID 02/25/17 [History Last Taken 2 Days Ago ~12/26/20] venlafaxine 150 mg PO DAILY 02/25/17 [History Last Taken 2 Days Ago ~12/26/20] bupropion HCl 75 mg PO BID 07/29/20 [History Last Taken 2 Days Ago ~12/26/20] lisinopril 40 mg PO BID 07/29/20 [History Last Taken 2 Days Ago ~12/26/20] spironolactone 25 mg PO DAILY 07/29/20 [History Last Taken 2 Days Ago ~12/26/20] buspirone 15 mg PO BID 12/28/20 [History Last Taken 2 Days Ago ~12/26/20] metoprolol succinate 100 mg PO DAILY 12/28/20 [History Last Taken 2 Days Ago ~12/26/20] venlafaxine 75 mg PO DAILY 12/28/20 [History Last Taken 2 Days Ago ~12/26/20] Allergy/AdvReac Type Severity Reaction Status Date / Time No Known Allergies Allergy Verified 07/29/20 01:54 Family History (Updated 12/28/20 @ 18:22 by Rosalie Crain NP, [employer]-C) Father Cancer Lung and stomach Mother Diabetes Surgical History (Updated 12/28/20 @ 18:22 by Rosalie Crain NP, [employer]-C) H/O shoulder replacement History of appendectomy History of hemorrhoidectomy History of hysterectomy History of intestinal surgery Hx of cholecystectomy Hx of tonsillectomy Social History (Updated 12/28/20 @ 18:24 by Rosalie Crain ROUSTABOUT PUSHER, [employer]HER-C) household members: other details: Lives alone Smoking Status: Former smoker quit date: 12/21/20 alcohol intake: former details: Quit 4 days ago, previous daily half gallon vodka per day use substance use type: does not use Results Lab / Micro Data Result Diagrams: 12/28/20 14:50 12/28/20 13:45 Charges/Coding Addendum Addendum: Hospitalist note: I am seeing this patient in conjunction with Rosalie Crain. I independently seen and examined the patient. History and physical, laboratory data and imaging studies reviewed and I concur with the above admission and treatment plan. Patient presented to the emergency room because of weakness that has been going on for 1 month, has been progressively worsening and she has been falling frequently at home. She denied any significant body or head trauma. She complained of diarrhea, has been going on for 1 month, loose stool, 2-3 times a day, no blood in the stool and no abdominal pain, nausea or vomiting. She denie d fever or chills. She denied shortness of breath, cough, chest pain, palpitation, dizziness or lightheadedness. She stated that she has been drinking half a gallon of vodka every day for the past 4 days. In the emergency department, she was afebrile, tachycardic, blood pressure was stable, pulse ox was 97% on room air. Routine blood work was remarkable for hemoglobin of 10.5 g/dL, sodium was 131, BUN is 40, creatinine is 1.78. Serum magnesium was 1.4. LFT revealed slightly elevated liver transaminases, bilirubin is normal. Troponin is negative. Lipase is 1000 further 17. Urinalysis revealed cloudy urine, positive for nitrite, there was 0-5 WBCs and 2+ bacteria. Chest x-ray showed no acute findings. CT scan brain showed no acute findings. Lactic acid is 4. She is being admitted for acute cystitis, lactic acidosis, acute kidney injury and acute pancreatitis. - Physical Exam General: Alert, Oriented x3, Cooperative, No apparent distress. HEENT: Atraumatic, PERRLA, EOMI. Neck: Supple, No JVD, Negative Carotid Bruits, Trachea Midline, Thyroid Normal. Lungs: Diminished breath sounds bilateral, otherwise clear, No rhonchi, No wheeze, No rales. Cardiovascular: Regular rate, Regular Rhythm, Normal S1, Normal S2, PMI Normal. Abdomen: Bowel Sounds Present, Soft, Non Tender, Non-Distended, No Hepato- splenomegaly. Extremities: No clubbing, No cyanosis, No edema Skin: No rashes, No breakdown Neurological: Cranial nerves are intact, neuro grossly intact Assessment and plan: #1 acute pancreatitis: Probably alcoholic pancreatitis. Lipase is 1417. LFT revealed slight elevated liver transaminases, alk phos is 186. Bilirubin is normal. Plan: Admit to [facility] floor, telemetry, clear liquids, IV fluids, Zofran as needed, IV PPI, repeat CBC and CMP tomorrow morning, repeat lipase tomorrow morning, PT OT evaluation and treatment. #2 acute kidney injury: Due to hypovolemia secondary to diarrhea as well as pancreatitis. Baseline kidney function is normal. Plan: IV fluids, input output chart, repeat BMP tomorrow morning. #3 lactic acidosis: Likely due to acute kidney injury and alcoholism. I doubt infection, sepsis or severe sepsis. Chest x-ray and urinalysis reviewed as above. No leukocytosis, she is afebrile. Plan: IV fluids, repeat lactic acid in 3 hours, blood culture, urine culture. #5 probable acute cystitis: Start IV Rocephin, urine culture. #4 electrolyte abnormalities: Hyponatremia likely chronic because of alcoholism. Magnesium is 1.4. Plan: IV fluids with normal saline, replace magnesium with IV magnesium sulfate, repeat BMP and serum mag tomorrow. #5 elevated LFT: Due to alcoholism. Plan to monitor. #6 alcohol abuse: CIWA protocol, thiamine, folic acid. #7 other chronic medical problems: Stable, continue current medications as above. This note was generated with [employer] dictation software. It may contain incorrect words, spelling, and punctuation that were not noted in checking the note before signing. Visit Charges Inpatient E&M: 99600 Init Hosp L3
[2020-12-28 18:24] LABS: Reflex Lactate? Y
[2020-12-28 18:56] LABS: Magnesium 1.4 mg/dL (1.6-2.6); Phosphorus 2.9 mg/dL (2.5-4.9); Thyroid Stim Hormone (TSH) 1.83 uIU/mL (0.358-3.74)
[2020-12-28 19:24] LABS: Lactic Acid 1.2 mmol/L (0.4-1.9)
[2020-12-28] MEDS: 0.9% Normal Saline 1,000 ML 125 ML IV (20:00)
--- NOTE | 2020-12-28 21:04 | NURSING ---
Talked with Pt daughter Stephanie, gave and update on her mother and let her know visiting hours.
[2020-12-28] MEDS: 0.9% Saline Lock 10 ML Syringe IV (21:13)
[2020-12-28] MEDS: Ondansetron 4 MG/2 ML Vial IV (21:14)
[2020-12-28] MEDS: Magnesium Sulfate 4gm/100mL 4 GM/100 ML IV.SOLN. IV (21:18)
[2020-12-28] MEDS: Heparin Injection (Vial) 5,000 UNIT/ML VIAL 5000 UNIT SC (21:38)
[2020-12-28] MEDS: Atorvastatin Calcium 10 MG Tablet PO (21:38)
[2020-12-28] MEDS: Erythromycin Base 1 OPTH.TUBE 1 APPLIC EACH EYE (21:38)
[2020-12-28] MEDS: busPIRone 15 MG TABLET PO (21:38)
[2020-12-28] MEDS: Pantoprazole Sodium 40 MG Tablet PO (21:38)
[2020-12-28] MEDS: buPROPion 75 MG Tablet PO (21:38)
[2020-12-28] MEDS: Ibuprofen 400 MG Tablet PO (21:44)
[2020-12-28] MEDS: Acetaminophen 325 MG Tablet 650 MG PO (23:22)
[2020-12-29] VITALS (13 sets, daily range): BP systolic 87–115; BP diastolic 56–73; PULSE 88–117; RESP 16–18; TEMP 36.4–36.9; O2SAT 95–100
[2020-12-29] MEDS: Ibuprofen 400 MG Tablet PO ×3 (02:35→23:01)
[2020-12-29] MEDS: 0.9% Normal Saline 1,000 ML 125 ML IV ×3 (05:13→21:17)
[2020-12-29] MEDS: Erythromycin Base 1 OPTH.TUBE 1 APPLIC EACH EYE ×3 (05:13→21:17)
[2020-12-29] MEDS: Ondansetron 4 MG/2 ML Vial IV (05:21)
[2020-12-29 06:23] LABS: Absolute Lymphocyte Count 1.49 X10^3/uL (0.83-4.51); Basophil# 0.06 X10^3/uL; Basophil% 1.5 % (0-1); Eosinophil# 0.03 X10^3/uL; Eosinophils% 0.7 % (0-5); Hematocrit 25.3 % (37-47); Hemoglobin 8.3 g/dL (12.0-15.0); Lymphocyte # 1.49 X10^3/ul (0.83-4.51); Lymphocyte % 36.5 % (19-41); Mean Corp Hgb Conc 32.8 g/dL (32-36); Mean Corpuscular Hgb 32.2 pg (27.0-32.0); Mean Corpuscular Volume 98.1 fL (81-99); Mean Platelet Vol. 11.1 fl (6.2-12.0); Monocyte# 0.45 X10^3/uL; NRBC Flagged by Analyzer 0 % (0-5); Neutrophil # 2.02 X10^3/uL (2.7-7.7); Neutrophil % 49.6 % (47-70); POSITIVE MORPHOLOGY YES; Platelet Count 157 K/mm3 (150-450); RBC Distribution Width CV 19.2 % (11.6-14.6); RBC Distribution Width SD 68.6 fl (35.1-43.9); Red Blood Count 2.58 M/mm3 (4.2-5.4); White Blood Count 4.1 K/mm3 (4.4-11.0)
[2020-12-29 06:36] LABS: Differential Indicated SCAN CRITERIA MET
[2020-12-29 06:53] LABS: Target Cells 1+
[2020-12-29 07:12] LABS: ALB/GLOB Ratio 0.9 RATIO (0.9-2.4); AST(SGOT) 79 U/L (15-37); Alanine Aminotransfer ALT/SGPT 45 U/L (13-56); Albumin, Serum 2.3 g/dL (3.2-5.0); Alkaline Phosphatase 125 U/L (45-117); Anion Gap 12 (5-15); BUN 29 mg/dL (7-18); BUN/Creat Ratio 24.8 RATIO (10-20); Calcium,Total 8.1 mg/dL (8.5-10.1); Chloride 102 mmol/L (98-107); Creatinine, Serum 1.17 mg/dL (0.55-1.02); EST Glomerular Filtration Rate 49 mL/min (>60); Est Glom Filt Rate - Afr Amer 59 mL/min (>60); Estimated Creatinine Clearance 37.54 ml/min; Globulin 2.7 g/dL (2.2-4.2); Glucose 88 mg/dL (74-106); Lipase 840 U/L (73-393); Potassium 3.4 mmol/L (3.5-5.1); Sodium Level 133 mmol/L (136-145)
[2020-12-29] MEDS: Folic Acid 1 MG Tablet PO (08:31)
[2020-12-29] MEDS: Potassium Chloride Oral Tablet 20 MEQ 40 MEQ PO (08:31)
[2020-12-29] MEDS: Thiamine Hydrochloride 100 MG Tablet PO ×2 (08:31→16:16)
[2020-12-29] MEDS: Pantoprazole Sodium 40 MG Tablet PO ×2 (08:32→21:21)
[2020-12-29] MEDS: Multivitamins,Ther W-Minerals Tablet 1 TABLET PO (08:32)
[2020-12-29 09:01] LABS: Magnesium 3.1 mg/dL (1.6-2.6)
--- NOTE | 2020-12-29 09:21 | PCM.PN.HOSP ---
Documented by User: Rosalie Crain NP, SLIP CASTER-C 12/29/20 09:33 Subjective Subjective Patient seen and examined. Denies further diarrhea. Continues to report generalized weakness. No other complaints. Objective Data Objective Data Vital Signs: Vital Signs Temp Pulse Resp BP Pulse Ox 97.7 F L 105 H 16 101/69 95 12/29/20 08:12 12/29/20 08:12 12/29/20 08:12 12/29/20 08:12 12/29/20 08:12 Oxygen Flow Rate (L/min) 2 Oxygen Delivery Method Room Air Weight: 120 lb 2.431 oz Body Mass Index (BMI) 21.2 Intake & Output: Intake and Output for Last 24 Hours 12/27/20 12/28/20 12/29/20 23:59 23:59 23:59 Intake Total 2049 / 2649 Output Total 425 / 425 Balance 2049 1575 / 1575 Lab / Micro Data Result Diagrams: 12/29/20 05:39 12/29/20 05:39 Labs: Laboratory Results - last 24 hr 12/28/20 12/28/20 12/28/20 13:45 13:45 13:45 WBC Cancelled Corrected WBC Cancelled RBC Cancelled Hgb Cancelled Hct Cancelled MCV Cancelled MCH Cancelled MCHC Cancelled RDW Std Deviation Cancelled RDW Coeff of Jus Cancelled Plt Count Cancelled MPV Cancelled Immature Gran % (Auto) Cancelled Neut % (Auto) Cancelled Lymph % (Auto) Cancelled [place] % (Auto) Cancelled Eos % (Auto) Cancelled Baso % (Auto) Cancelled Absolute Neuts (auto) Cancelled Absolute Lymphs (auto) Cancelled Total Counted Cancelled Neutrophils % (Manual) Cancelled Band Neutrophils % Cancelled Lymphocytes % (Manual) Cancelled Monocytes % (Manual) Cancelled Eosinophils % (Manual) Cancelled Basophils % (Manual) Cancelled Metamyelocytes % Cancelled Myelocytes % Cancelled Promyelocytes % Cancelled Blast Cells % Cancelled Plasma Cell % (Manual) Cancelled Other Cells % Cancelled Nucleated RBC % Cancelled Nucleated RBCs/100 WBC Cancelled Differential Comment Cancelled Diff Path Review Cancelled Hypersegmented Neuts Cancelled Atypical Lymphocytes Cancelled Reactive Lymphocytes Cancelled Smudge Cells Cancelled Toxic Granulation Cancelled Toxic Vacuolation Cancelled Dohle Bodies Cancelled Jeane Rods Cancelled Platelet Estimate Cancelled Plt Morphology Comment Cancelled RBC Morphology Cancelled Polychromasia Cancelled Hypochromasia Cancelled Poikilocytosis Cancelled Basophilic Stippling Cancelled Anisocytosis Cancelled Microcytosis Cancelled Macrocytosis Cancelled Spherocytes Cancelled Sickle Cells Cancelled Target Cells Cancelled Tear Drop Cells Cancelled Ovalocytes Cancelled Stomatocytes Cancelled Chavez-Garrett Bodies Cancelled Ava Cells Cancelled Bite Cells Cancelled Crenated Cell Cancelled Acanthocytes (Spur) Cancelled Rouleaux Cancelled Schistocytes Cancelled PT INR APTT Sodium 131 L Potassium 4.2 Chloride 91 L Carbon Dioxide 24.0 Anion Gap 16 H BUN 40 H Creatinine 1.78 H Estim Creat Clear Calc 24.67 Est GFR (MDRD) Af Amer 36 L Est GFR (MDRD) Non-Af 30 L BUN/Creatinine Ratio 22.5 H Glucose 180 H Lactic Acid 4.0 H* Calcium 9.9 Phosphorus Magnesium Total Bilirubin 0.90 AST 176 H ALT 78 H Alkaline Phosphatase 186 H Troponin I High Sens 37.5 Total Protein 7.0 Albumin 3.3 Globulin 3.7 Albumin/Globulin Ratio 0.9 Lipase 1417 H TSH Urine Color Urine Clarity Urine pH Ur Specific [place] Urine Protein Urine Glucose (UA) Urine Ketones Urine Occult Blood Urine Nitrite Urine Bilirubin Urine Urobilinogen Ur Leukocyte Esterase Urine RBC Urine WBC Ur Squamous Epith Cells Urine Bacteria Urine Mucus 12/28/20 12/28/20 12/28/20 13:45 14:20 14:50 WBC 5.0 Corrected WBC RBC 3.24 L Hgb 10.5 L Hct 31.1 L MCV 96.0 MCH 32.4 H MCHC 33.8 RDW Std Deviation 65.9 H RDW Coeff of Jus 18.6 H Plt Count 185 MPV 10.9 Immature Gran % (Auto) 0.800 Neut % (Auto) 64.6 Lymph % (Auto) 19.8 [place] % (Auto) 13.6 H Eos % (Auto) 0.2 Baso % (Auto) 1.0 Absolute Neuts (auto) 3.2 Absolute Lymphs (auto) 0.99 Total Counted Neutrophils % (Manual) Band Neutrophils % Lymphocytes % (Manual) Monocytes % (Manual) Eosinophils % (Manual) Basophils % (Manual) Metamyelocytes % Myelocytes % Promyelocytes % Blast Cells % Plasma Cell % (Manual) Other Cells % Nucleated RBC % 0 Nucleated RBCs/100 WBC Differential Comment SCANNED Diff Path Review Hypersegmented Neuts Atypical Lymphocytes Reactive Lymphocytes Smudge Cells Toxic Granulation Toxic Vacuolation Dohle Bodies Jeane Rods Platelet Estimate Plt Morphology Comment RBC Morphology N CHROM Polychromasia Hypochromasia Poikilocytosis Basophilic Stippling Anisocytosis 1+ Microcytosis Macrocytosis 1+ Spherocytes Sickle Cells Target Cells Tear Drop Cells Ovalocytes Stomatocytes Chavez-Garrett Bodies Fisher Cells Bite Cells Crenated Cell Acanthocytes (Spur) Rouleaux Schistocytes PT Cancelled INR Cancelled APTT Cancelled Sodium Potassium Chloride Carbon Dioxide Anion Gap BUN Creatinine Estim Creat Clear Calc Est GFR (MDRD) Af Amer Est GFR (MDRD) Non-Af BUN/Creatinine Ratio Glucose Lactic Acid Calcium Phosphorus 2.9 Magnesium 1.4 L Total Bilirubin AST ALT Alkaline Phosphatase Troponin I High Sens Total Protein Albumin Globulin Albumin/Globulin Ratio Lipase TSH 1.83 Urine Color Urine Clarity Urine pH Ur Specific [place] Urine Protein Urine Glucose (UA) Urine Ketones Urine Occult Blood Urine Nitrite Urine Bilirubin Urine Urobilinogen Ur Leukocyte Esterase Urine RBC Urine WBC Ur Squamous Epith Cells Urine Bacteria Urine Mucus 12/28/20 12/28/20 12/28/20 14:50 16:00 18:27 WBC Corrected WBC RBC Hgb Hct MCV MCH MCHC RDW Std Deviation RDW Coeff of Jus Plt Count MPV Immature Gran % (Auto) Neut % (Auto) Lymph % (Auto) [place] % (Auto) Eos % (Auto) Baso % (Auto) Absolute Neuts (auto) Absolute Lymphs (auto) Total Counted Neutrophils % (Manual) Band Neutrophils % Lymphocytes % (Manual) Monocytes % (Manual) Eosinophils % (Manual) Basophils % (Manual) Metamyelocytes % Myelocytes % Promyelocytes % Blast Cells % Plasma Cell % (Manual) Other Cells % Nucleated RBC % Nucleated RBCs/100 WBC Differential Comment Diff Path Review Hypersegmented Neuts Atypical Lymphocytes Reactive Lymphocytes Smudge Cells Toxic Granulation Toxic Vacuolation Dohle Bodies Jeane Rods Platelet Estimate Plt Morphology Comment RBC Morphology Polychromasia Hypochromasia Poikilocytosis Basophilic Stippling Anisocytosis Microcytosis Macrocytosis Spherocytes Sickle Cells Target Cells Tear Drop Cells Ovalocytes Stomatocytes Chavez-Garrett Bodies Ava Cells Bite Cells Crenated Cell Acanthocytes (Spur) Rouleaux Schistocytes PT 12.5 INR 1.0 APTT 25.7 Sodium Potassium Chloride Carbon Dioxide Anion Gap BUN Creatinine Estim Creat Clear Calc Est GFR (MDRD) Af Amer Est GFR (MDRD) Non-Af BUN/Creatinine Ratio Glucose Lactic Acid 1.2 Calcium Phosphorus Magnesium Total Bilirubin AST ALT Alkaline Phosphatase Troponin I High Sens Total Protein Albumin Globulin Albumin/Globulin Ratio Lipase TSH Urine Color Yellow Urine Clarity Sl. Cloudy Urine pH 5.0 Ur Specific [place] 1.005 Urine Protein Negative Urine Glucose (UA) Normal Urine Ketones Negative Urine Occult Blood 10 H Urine Nitrite Positive H Urine Bilirubin Negative Urine Urobilinogen Normal Ur Leukocyte Esterase 25 H Urine RBC 0-5 SEEN Urine WBC 0-5 SEEN Ur Squamous Epith Cells 0-5 SEEN Urine Bacteria 2+ Urine Mucus 0 SEEN 12/29/20 12/29/20 12/29/20 05:39 05:39 05:39 WBC 4.1 L Corrected WBC RBC 2.58 L Hgb 8.3 L Hct 25.3 L MCV 98.1 MCH 32.2 H MCHC 32.8 RDW Std Deviation 68.6 H RDW Coeff of Jus 19.2 H Plt Count 157 MPV 11.1 Immature Gran % (Auto) 0.700 Neut % (Auto) 49.6 Lymph % (Auto) 36.5 [place] % (Auto) 11.0 H Eos % (Auto) 0.7 Baso % (Auto) 1.5 H Absolute Neuts (auto) 2.0 Absolute Lymphs (auto) 1.49 Total Counted Neutrophils % (Manual) Band Neutrophils % Lymphocytes % (Manual) Monocytes % (Manual) Eosinophils % (Manual) Basophils % (Manual) Metamyelocytes % Myelocytes % Promyelocytes % Blast Cells % Plasma Cell % (Manual) Other Cells % Nucleated RBC % 0 Nucleated RBCs/100 WBC Differential Comment Diff Path Review Hypersegmented Neuts Atypical Lymphocytes Reactive Lymphocytes Smudge Cells Toxic Granulation Toxic Vacuolation Dohle Bodies Jeane Rods Platelet Estimate Plt Morphology Comment RBC Morphology Polychromasia Hypochromasia Poikilocytosis Basophilic Stippling Anisocytosis Microcytosis Macrocytosis Spherocytes Sickle Cells Target Cells 1+ Tear Drop Cells Ovalocytes Stomatocytes Chavez-Garrett Bodies Ava Cells Bite Cells Crenated Cell Acanthocytes (Spur) Rouleaux Schistocytes PT INR APTT Sodium 133 L Potassium 3.4 L Chloride 102 Carbon Dioxide 19.0 L Anion Gap 12 BUN 29 H Creatinine 1.17 H Estim Creat Clear Calc 37.54 Est GFR (MDRD) Af Amer 59 L Est GFR (MDRD) Non-Af 49 L BUN/Creatinine Ratio 24.8 H Glucose 88 Lactic Acid Calcium 8.1 L Phosphorus Magnesium 3.1 H Total Bilirubin 0.40 AST 79 H ALT 45 Alkaline Phosphatase 125 H Troponin I High Sens Total Protein 5.0 L Albumin 2.3 L Globulin 2.7 Albumin/Globulin Ratio 0.9 Lipase 840 H TSH Urine Color Urine Clarity Urine pH Ur Specific [place] Urine Protein Urine Glucose (UA) Urine Ketones Urine Occult Blood Urine Nitrite Urine Bilirubin Urine Urobilinogen Ur Leukocyte Esterase Urine RBC Urine WBC Ur Squamous Epith Cells Urine Bacteria Urine Mucus Radiography Diagnostic Testing: Radiology Impression Chest X-Ray 12/28/20 14:13 IMPRESSION: No acute abnormality is seen. Electronically Signed: Anthony Melchor MD at 15:01 EDT , Service support , Brain CT 12/28/20 15:04 IMPRESSION: Chronic involutional changes of the brain. Electronically Signed: Anthony Melchor MD at 15:14 EDT , Service support , Physical Exam Const alert, oriented x3 and no apparent distress Orientation / Consciousness: awake, oriented to person, oriented to place and oriented to time Nutritional Appearance: cachectic and other Other Details: appears unkempt HEENT normocephalic Mouth: dry mucous membranes Eyes PERRL and EOMs intact bilaterally Conjunctiva: conjunctiva abnormal bilateral discharge purulent Neck no lymphadenopathy Resp clear to auscultation bilaterally Auscultation: diminished lung sounds Cardio regular rate, regular rhythm and no murmurs Peripheral Pulses: pulses 2+ throughout GI normal to inspection, nondistended, normoactive bowel sounds, non-tender and non-distended Extremity normal to inspection Skin no rashes or lesions noted Lesions: no lesions Rashes: no rashes Trauma: no lacerations or abrasions Neuro CN's II-XII intact bilaterally, no focal motor deficits, no sensory deficits noted and deep tendon reflexes 2+ bilaterally Psych mental status grossly normal and affect normal Assessment & Plan Assessment/Plan (1) Lactic acidosis: (2) Acute alcoholic pancreatitis: (3) Urinary tract infection: PLAN: 1. Generalized weakness with recurrent falls-suspect multifactorial as a result of chronic alcohol use with recent cessation, probable UTI and acute kidney injury/dehydration. Treatment per below. PT/OT. Case management consult. 2. Acute kidney injury-secondary to dehydration. Improving with IV fluids. Trend BMP. 3. Probable acute UTI-UA with 2+ bacteria, 25 leukocyte, positive nitrite. Negative WBC. IV Rocephin pending urine culture. 4. Lactic acidosis- secondary to BALDO/dehydration. Patient is afebrile, no leukocytosis. Repeat lactic acid normal. Did not meet sepsis criteria on admission. 5. Hypotension- secondary to hypovolemia. Improved quickly with fluid resuscitation. Hold BP regimen with the exception of metoprolol with hold parameters. 6. Probable acute alcoholic pancreatitis-lipase 1417. Patient denies abdominal pain. IV fluids, clear liquids. 7. Transaminitis/elevated alk phos- secondary to alcohol use, trending down. 8. Mild hyponatremia-secondary to alcohol use and hypovolemia. Trend BMP. 9. Chronic alcohol dependence-states she quit 4 days prior to admission. Prior half gallon of vodka per day. CIWA. Thiamine, folic acid, multivitamin supplementation. Denies active withdrawal symptoms. 10. Bilateral conjunctivitis with purulent discharge-warm compresses to eyes bilaterally. Erythromycin application both eyes 3 times daily for 7 days. 11. Hypertension-continue metoprolol with hold parameters. Hold spironolactone, lisinopril. 12. Hyperlipidemia-continue statin. 13. Anxiety/depression-on bupropion, buspirone, venlafaxine. 14. GERD-continue PPI. 15. History of small bowel obstruction 16. Tobacco dependence-reports she quit 1 week ago. Encouraged continued cessation. Declines nicotine replacement. 17. Chronic normocytic anemia-mildly reduced from baseline, suspect secondary to hemodilution. Trend CBC. Check stool for occult blood given ongoing diarrhea. DVT prophylaxis-heparin subcu This patient was seen by CHELO Chauhan under the supervision of Dr. Kiser. Documented by User: Dr. Jeovany Kiser DO 12/29/20 12:53 Subjective Subjective still with abdominal pain. feels weak. Objective Data Lab / Micro Data Result Diagrams: 12/29/20 05:39 12/29/20 05:39 Physical Exam Const alert HEENT Head and Scalp: normocephalic Resp normal respiratory effort, no retractions, no use of accessory muscles and clear to auscultation bilaterally Cardio regular rate, regular rhythm, S1 normal heart sound and S2 normal heart sound GI normal to inspection, nondistended, normoactive bowel sounds, non-tender and non-distended Assessment & Plan Assessment/Plan (1) Debility: PLAN: Patient seen and examined independently. Data reviewed. I agree with the above note by the nurse practitioner. 1. Debility Patient preferring home health care. Likely multifactorial: Due to malnutrition, dehydration. 2. Acute kidney injury Improving On IV fluids 3. Abnormal urinalysis Doubtful UTI and antibiotics have been discontinued. Charges/Coding Visit Charges Inpatient E&M: 39427 Subs Hosp L2
--- NOTE | 2020-12-29 10:10 | CASEMGMT ---
CODY LUTHER Assessment: Face to Face with pt for initial transition planning/care coordination assessment. CODY LUTHER introduced self and role at [facility], pt voices understanding and consents to assessment. Pt is A/O x4 and answers all questions appropriately at this time. pt sitting up in chair in no distress. Care providers, pharmacy, and demographics verified/updated. Admitting Dx: UTI, pancreatitis, debility PCP: [facility] Specialists: gen Wendy surgery; donny Bartlett [facility]erred [facility]acy: [facility] Insurance: [employer] Dual Complete Prescription Benefit: yes LNOK: Talib Mann, sig other; Stephanie Nunez, dtr Living Arrangements: Pt lives alone in a ground level apartment with 1 step to enter with a grab bar. Pt states prior to hospitalization she was I in ADL's. Transportation: Pt drives self and denies concerns with transportation. DME/HHC/SNF: Pt has a shower chair and grab bars at home. Pt denies history of HHC or SNF stay. Pt recently stopped drinking 4 days ago. BRANDEN Dsouza to see pt. Pt states no concerns with going home at time of dc. She states her dtr checks in on her. Pt states her legs hurt and give out. Discussed options of therapy at dc. Pt is agreeable to having therapy at home. Currently pt is using a walker in hospital but does not have at home. Pt states no further concerns/needs. CM to follow. Advised pt to ask CM if any further question/concerns/needs arise, voices understanding. Pt Goal: Get back to my self at home. Home Plan: Home with HHC.
--- NOTE | 2020-12-29 10:38 | CASEMGMT ---
Addendum entered by Stacey Hamilton 12/29/20 13:22: CODY LUTHER made referral to [facility], able to accept pt. Green sheet on chart for w/e dc. Addendum entered by Stacey Hamilton 12/29/20 12:56: CODY LUTHER made referral to [facility], unable to accept d/t staffing. CODY LUTHER in to pt room to make aware. Pt states just get who you can. [facility] are unable to accept pt. Addendum entered by Stacye Hamilton 12/29/20 11:33: CODY LUTHER in to pt room. Pt preferred choice for HHC is [facility] followed by [facility]. Pt chooses [facility] should she need DME. Will await therapy evals. Original Note: CODY LUTHER in to pt room. Pt states she does not have a LW/DPOA and she does not have any interest in completing them at this time. Patient was provided a list of HHC and DME providers including quality and resource use data and consistent with the patient?s preferred geographic region, medical needs, and insurance network. Pt would like some time to look these choices over. CODY LUTHER to check back with pt.
[2020-12-29] MEDS: Venlafaxine XR 75 MG Capsule PO (10:50)
[2020-12-29] MEDS: Venlafaxine XR 150 MG Capsule PO (10:50)
[2020-12-29] MEDS: buPROPion 75 MG Tablet PO ×2 (10:50→21:27)
[2020-12-29] MEDS: Heparin Injection (Vial) 5,000 UNIT/ML VIAL 5000 UNIT SC ×2 (10:51→21:21)
[2020-12-29] MEDS: busPIRone 15 MG TABLET PO ×2 (10:51→21:28)
--- NOTE | 2020-12-29 11:02 | CASEMGMT ---
Social Work Note BRANDEN reviewed chart. Pt with history of ETOH use, chart states pt drank half a gallon of vodka per day but quit four days ago. SW in to speak with pt. SW introduced self and role at [facility]. Pt is alert and orientated. Pt confirms she was drinking half a gallon of vodka a day, also confirms she recently quit. SW asked pt about HX of ETOH. Pt states she has history of ETOH use, states she just started drinking again a couple months ago. Pt states her mother and sister had problems with alcohol/alcoholism. SW asked pt if any stressors led to pt drinking again. Pt states at that time she had shoulder surgery. SW asked pt if she drank to cope with the pain from her surgery. Pt states she drank to cope with the pain and also because she was depressed. SW asked pt about depression. Pt denied ever being in counseling. Pt states she works with her PCP Dr. Velazco regarding her depression and is currently prescribed depression medications through him. Pt states her depression is currently well managed. Pt denied any additional Mental Health Hx. Pt denied any history of suicidal thoughts/plans/ideations. Pt denied any current suicidal thoughts/plans/ideations. Pt states she has good sober support at home and plans on continuing to be sober once she returns home. SW offered pt ETOH abuse/use resources and counseling resources and pt denied resources. Pt denied additional needs or concerns at this time. Ximena Puentes COMPUTER SALESPERSON RETAIL, SIGNING AGENT
[2020-12-29] MEDS: Metoprolol(XL)Succ 100 MG Tablet PO (13:26)
[2020-12-29] MEDS: Acetaminophen 325 MG Tablet 650 MG PO ×2 (13:26→23:01)
--- NOTE | 2020-12-29 16:00 | CASEMGMT ---
Social Work Note BRANDEN received a call from Merna Bharath ([phone]) at [facility] stating pt has an open APS case and requesting update. BRANDEN provided update. Merna states an APS report was made due to pt sitting in own urine and feces, using Puppy pads to clean self, pt not taking care of self, pt not taking medications when supposed to, concerns regarding pt's ETOH use and concerns with pt drinking self to . Pt also has three dogs at home that urinate and leave feces in the home. BRANDEN asked Merna if pt's APS report is new or if pt has had APS reports in the past. Merna states it is pt's first APS referral. Merna states that the neighbors had concerns regarding pt. Merna asked what pt's diagnosis was, BRANDEN provided diagnosis. Merna asked about pt's ETOH use. BRANDEN informed Merna that toxicology was not taken on pt when pt was in the ED and pt is reporting that she has quit drinking four days ago. Merna asked if pt will be going through detox program. BRANDEN updated Merna that at this time, pt is denying any active withdrawal symptoms. BRANDEN updated Merna that this worker did speak to pt about ETOH use and pt denied wanting any resources. BRANDEN did update Merna that pt is agreeable to [facility] and that has been arranged. Merna states that pt has a daughter named Stephanie who had called the squad for pt yesterday. Merna asked if this worker had called Stephanie, SW informed Merna up until this point, there was no reason to call Stephanie as pt is alert and orientated and own person. Merna asked when pt will be discharged, BRANDEN informed Merna likely this weekend. Merna asked to be called when pt is discharged ([phone]) SW in to speak with pt. BRANDEN asked pt about her living environment. Pt states that her house is clean now as her daughter and neighbor went to pt's home to clean it. Pt states that she used to be able to clean her house but became so weak she was unable to clean it. SW asked pt what complaints she had that brought her to [facility] and pt states she was feeling really weak. BRANDEN asked pt about taking her medications, pt states she takes all of her medications when she is supposed to. BRANDEN asked pt about sitting in urine and feces. Pt confirms that she sits in her urine and feces as she has been too weak to make it to the bathroom. SW asked pt if she felt like she could return home with her current weakness and pt states no. SW asked pt if she would be agreeable to going to a alf and pt denied. SW informed pt that if she doesn't feel she can return home then she will need to go to a SNF as pt cannot remain at [facility] with no medical reason to keep her here. SW informed pt that she would be going to SNF for only short term rehabilitation. Pt once again denied SNF, states she will just be going home. Pt states she will need a walker, SW informed pt that RN CM will arrange walker. SW asked pt if she is just going to continue to sit in her urine and feces at home and pt states she can use a diaper. SW informed pt that there were concerns relayed regarding her drinking. SW asked pt if she knew the health consequences if pt continues to drink. Pt states yeah I could end up here again or . SW asked pt again if she would be agreeable to at least taking ETOH/counseling resources and treatment and pt denied again. Pt states she can remain sober on her own. Pt denied any current suicidal thoughts/plans/ideations. SW asked pt if this worker could call her daughter Stephanie and pt gave this worker permission to call her daughter Stephanie. BRANDEN placed a call to pt's daughter Stephanie and introduced self and role at [facility]. Stephanie confirms she had called the squad for pt due to pt's weakness. Stephanie states pt was just not getting better and getting more weak and not getting up from the couch so she told pt that she needed to go to the hospital. Stephanie states that she and pt's neighbor did go to pt's house to clean it and between the two of them they are currently taking care of pt's dogs. BRANDEN back in to speak with pt again and pt is now agreeable to at least taking ETOH/Counseling Resources. SW provided pt with ETOH/Counseling resources. Pt thanked this worker, denied additional needs or concerns. Green sheet on chart for staff to call Merna with [facility] when pt is discharged. Green sheet is also on the chart for pt's HHC and walker. Ximena Puentes PARKING ASSISTANT, DIRECTOR MOTION PICTURE
[2020-12-29] MEDS: Atorvastatin Calcium 10 MG Tablet PO (21:21)
[2020-12-29] MEDS: MELATONIN 10 MG TABLET PO (21:21)
[2020-12-30] VITALS (8 sets, daily range): BP systolic 93–113; BP diastolic 64–82; PULSE 74–87; RESP 16–18; TEMP 36.1–36.6; O2SAT 95–100
[2020-12-30] MEDS: 0.9% Normal Saline 1,000 ML 125 ML IV (05:24)
[2020-12-30] MEDS: Acetaminophen 325 MG Tablet 650 MG PO (05:26)
[2020-12-30] MEDS: Ibuprofen 400 MG Tablet PO (05:26)
[2020-12-30] MEDS: Erythromycin Base 1 OPTH.TUBE 1 APPLIC EACH EYE ×2 (05:27→14:25)
[2020-12-30 07:41] LABS: Absolute Lymphocyte Count 1.63 X10^3/uL (0.83-4.51); Absolute Neutrophil Count 2.5 X10^3/uL (2.0-7.7); Basophil# 0.04 X10^3/uL; Basophil% 0.9 % (0-1); Eosinophil# 0.04 X10^3/uL; Eosinophils% 0.9 % (0-5); Hematocrit 26.7 % (37-47); Hemoglobin 8.4 g/dL (12.0-15.0); Lymphocyte # 1.63 X10^3/ul (0.83-4.51); Lymphocyte % 35.5 % (19-41); Mean Corp Hgb Conc 31.5 g/dL (32-36); Mean Corpuscular Hgb 32.2 pg (27.0-32.0); Mean Corpuscular Volume 102.3 fL (81-99); Mean Platelet Vol. 11.2 fl (6.2-12.0); Monocyte# 0.38 X10^3/uL; Monocyte% 8.3 % (0-10); NRBC Flagged by Analyzer 0 % (0-5); Neutrophil # 2.47 X10^3/uL (2.7-7.7); Neutrophil % 53.7 % (47-70); POSITIVE MORPHOLOGY YES; Platelet Count 164 K/mm3 (150-450); Red Blood Count 2.61 M/mm3 (4.2-5.4); White Blood Count 4.6 K/mm3 (4.4-11.0)
[2020-12-30 07:44] LABS: Differential Indicated SCAN CRITERIA MET
[2020-12-30 08:00] LABS: Anion Gap 9 (5-15); BUN 19 mg/dL (7-18); BUN/Creat Ratio 15.7 RATIO (10-20); Calcium,Total 8.5 mg/dL (8.5-10.1); Chloride 104 mmol/L (98-107); Creatinine, Serum 1.21 mg/dL (0.55-1.02); EST Glomerular Filtration Rate 47 mL/min (>60); Est Glom Filt Rate - Afr Amer 57 mL/min (>60); Glucose 87 mg/dL (74-106); Potassium 4.2 mmol/L (3.5-5.1); Sodium Level 130 mmol/L (136-145)
[2020-12-30 08:19] LABS: Anisocytosis 1+
[2020-12-30] MEDS: buPROPion 75 MG Tablet PO (10:36)
[2020-12-30] MEDS: Pantoprazole Sodium 40 MG Tablet PO (10:36)
[2020-12-30] MEDS: Thiamine Hydrochloride 100 MG Tablet PO (10:37)
[2020-12-30] MEDS: Multivitamins,Ther W-Minerals Tablet 1 TABLET PO (10:37)
[2020-12-30] MEDS: Venlafaxine XR 75 MG Capsule PO (10:37)
[2020-12-30] MEDS: Venlafaxine XR 150 MG Capsule PO (10:37)
[2020-12-30] MEDS: busPIRone 15 MG TABLET PO (10:37)
[2020-12-30] MEDS: Folic Acid 1 MG Tablet PO (10:37)
[2020-12-30] MEDS: Heparin Injection (Vial) 5,000 UNIT/ML VIAL 5000 UNIT SC (10:39)
--- NOTE | 2020-12-30 11:10 | PCM.DC ---
Discharge Instructions Diet Discharge Diet: No restrictions Activity Discharge Activity: Return to Normal Activity Dressing / Incision Call your doctor if you observe: Shortness of breath, Dizziness and Chest pain Follow Up Care Test Results: Test results from this visit will be discussed in further detail at your follow-up appointment, if applicable. Discharge Plan Admission Admit Date/Time: 12/28/20 18:15 Primary Reason for Your Visit: Weakness Attending Provider: Jeovany Kiser Primary Care Provider: Luis Velazco Discharge Orders/Prescriptions Prescriptions: New erythromycin 5 mg/gram (0.5 %) Ointment 1 applic EACH EYE TID 5 Days Qty: 0 RF: 0 cephalexin 500 mg capsule 500 mg PO Q8H Qty: 15 RF: 0 Continued atorvastatin 10 MG tablet 10 mg PO QHS RF: 0 omeprazole 20 MG capsule,delayed release(DR/EC) 40 mg PO BID RF: 0 venlafaxine 150 MG tablet extended release 24hr 150 mg PO DAILY RF: 0 bupropion HCl 75 MG tablet 75 mg PO BID RF: 0 venlafaxine 37.5 mg capsule,extended release 24hr 75 mg PO DAILY RF: 0 metoprolol succinate 100 mg tablet extended release 24 hr 100 mg PO DAILY RF: 0 buspirone 15 mg tablet 15 mg PO BID RF: 0 Discontinued spironolactone 25 MG tablet 25 mg PO DAILY RF: 0 lisinopril 40 MG tablet 40 mg PO BID RF: 0 Referrals / Follow Up: Luis Velazco MD [Primary Care Provider] - In 1 Week Disposition Disposition (needs filled in before D/C Order can be placed): Home Health Service
--- NOTE | 2020-12-30 11:26 | DS.PCM_ITS ---
Documented by User: Rosalie Crain NP, CRM COORDINATOR-C 12/30/20 11:33 Providers Date of Admission: 12/28/20 Date of Discharge: 12/30/20 Primary Care Physician: Dr. Luis Velazco MD Reason For Visit: UTI, PANCREATITIS, DEBILITY Diagnosis Discharge Diagnosis (1) Debility: Status: Acute Code(s): R53.81 - Other malaise Medications at Discharge Home Medications atorvastatin 10 mg PO QHS 02/25/17 omeprazole 40 mg PO BID 02/25/17 venlafaxine 150 mg PO DAILY 02/25/17 bupropion HCl 75 mg PO BID 07/29/20 buspirone 15 mg PO BID 12/28/20 metoprolol succinate 100 mg PO DAILY 12/28/20 venlafaxine 75 mg PO DAILY 12/28/20 cephalexin 500 mg PO Q8H #15 cap 12/30/20 erythromycin 1 applic EACH EYE TID 5 Days #0 g 12/30/20 Hospital Course Operations None Procedures None Summary of Care Provided Minutes Spent on Discharge: 35 Hospital Course: Patient is a 70-year-old female admitted 12/28/2020 due to weakne ss. 1. Generalized weakness with recurrent falls-suspect multifactorial as a result of chronic alcohol use with recent cessation, probable UTI and acute kidney injury/dehydration. Recommended SNF however patient adamantly declines. Plan for home with home health. APS involved due to poor living conditions and poor self-care. Follow-up with PCP in 1 week. 2. Acute kidney injury-secondary to dehydration. Improved with IV fluids. Recommend repeat BMP in 1 week by primary care provider. Lisinopril and spironolactone held until repeat BMP. 3. Acute GNR UTI-UA with 2+ bacteria, 25 leukocyte, positive nitrite. Negative WBC. Urine culture growing GNR greater than 100,000 colony count. Keflex for 5 days at discharge. 4. Lactic acidosis- secondary to BALDO/dehydration. Patient is afebrile, no leukocytosis. Repeat lactic acid normal. Did not meet sepsis criteria on admission. 5. Hypotension- secondary to hypovolemia. Improved quickly with fluid resuscitation. Hold BP regimen with the exception of metoprolol with hold parameters. 6. Probable acute alcoholic pancreatitis-lipase 1417. Patient denies abdominal pain. IV fluids, clear liquids. 7. Transaminitis/elevated alk phos- secondary to alcohol use, trending down. 8. Mild hyponatremia-secondary to alcohol use and hypovolemia. 9. Chronic alcohol dependence-states she quit 4 days prior to admission. Prior half gallon of vodka per day. Denies active withdrawal symptoms. Declines resources/assistance with maintaining sobriety. 10. Bilateral conjunctivitis with purulent discharge-warm compresses to eyes bilaterally. Erythromycin application both eyes 3 times daily for 7 days. 11. Hypertension-continue metoprolol with hold parameters. Hold spironolactone, lisinopril at discharge pending further follow up. 12. Hyperlipidemia-continue statin. 13. Anxiety/depression-on bupropion, buspirone, venlafaxine. 14. GERD-continue PPI. 15. History of small bowel obstruction 16. Tobacco dependence-reports she quit 1 week ago. Encouraged continued cessation. Declines nicotine replacement. 17. Chronic normocytic anemia-mildly reduced from baseline, suspect secondary to hemodilution. Physical Exam Const alert, oriented x3 and no apparent distress Orientation / Consciousness: awake, oriented to person, oriented to place and oriented to time Nutritional Appearance: cachectic and other Other Details: appears unkempt HEENT normocephalic Mouth: dry mucous membranes Eyes PERRL and EOMs intact bilaterally Conjunctiva: conjunctiva abnormal bilateral discharge purulent Neck no lymphadenopathy Resp clear to auscultation bilaterally Auscultation: diminished lung sounds Cardio regular rate, regular rhythm and no murmurs Peripheral Pulses: pulses 2+ throughout GI normal to inspection, nondistended, normoactive bowel sounds, non-tender and non-distended Extremity normal to inspection Skin no rashes or lesions noted Lesions: no lesions Rashes: no rashes Trauma: no lacerations or abrasions Neuro CN's II-XII intact bilaterally, no focal motor deficits, no sensory deficits noted and deep tendon reflexes 2+ bilaterally Psych mental status grossly normal and affect normal Patient seen and examined prior to discharge. Physical assessment as noted above. Patient is stable for discharge with follow up recommendations as noted above. This patient was seen by CHELO Chauhan under the supervision of Dr. Kiser. Weight / BMI Weight Weight: 120 lb 2.431 oz Body Mass Index (BMI) 21.2 ABG / Lab / Microbiology Data Result Diagrams: 12/30/20 07:15 12/30/20 07:15 Laboratory: Laboratory Results - last 24 hr 12/30/20 12/30/20 07:15 07:15 WBC 4.6 RBC 2.61 L Hgb 8.4 L Hct 26.7 L MCV 102.3 H MCH 32.2 H MCHC 31.5 L RDW Std Deviation 72.0 H RDW Coeff of Jus 19.0 H Plt Count 164 MPV 11.2 Immature Gran % (Auto) 0.700 Neut % (Auto) 53.7 Lymph % (Auto) 35.5 [place] % (Auto) 8.3 Eos % (Auto) 0.9 Baso % (Auto) 0.9 Absolute Neuts (auto) 2.5 Absolute Lymphs (auto) 1.63 Nucleated RBC % 0 Anisocytosis 1+ Sodium 130 L Potassium 4.2 Chloride 104 Carbon Dioxide 17.0 L Anion Gap 9 BUN 19 H Creatinine 1.21 H Estim Creat Clear Calc 36.30 Est GFR (MDRD) Af Amer 57 L Est GFR (MDRD) Non-Af 47 L BUN/Creatinine Ratio 15.7 Glucose 87 Calcium 8.5 Microbiology: Microbiology 12/28/20 16:00 Urine Culture - Preliminary Urine Catheter - Catheter GNR lactose sports administrator Microbiology 12/28/20 16:00 Urine Catheter - Catheter Urine Culture - Preliminary GNR lactose sports administrator D/C Instructions Discharge Diet: No restrictions Call your doctor if you observe: Shortness of breath, Dizziness and Chest pain Meaningful Use Info Meaningful Use Diagnoses (Choose all that apply): None applicable Discharge Plan Admission Admit Date/Time: 12/28/20 18:15 Primary Reason for Your Visit: Weakness Attending Provider: Jeovany Kiser Primary Care Provider: Luis Velazco Discharge Orders/Prescriptions Prescriptions: New erythromycin 5 mg/gram (0.5 %) Ointment 1 applic EACH EYE TID 5 Days Qty: 0 RF: 0 cephalexin 500 mg capsule 500 mg PO Q8H Qty: 15 RF: 0 Continued atorvastatin 10 MG tablet 10 mg PO QHS RF: 0 omeprazole 20 MG capsule,delayed release(DR/EC) 40 mg PO BID RF: 0 venlafaxine 150 MG tablet extended release 24hr 150 mg PO DAILY RF: 0 bupropion HCl 75 MG tablet 75 mg PO BID RF: 0 venlafaxine 37.5 mg capsule,extended release 24hr 75 mg PO DAILY RF: 0 metoprolol succinate 100 mg tablet extended release 24 hr 100 mg PO DAILY RF: 0 buspirone 15 mg tablet 15 mg PO BID RF: 0 Discontinued spironolactone 25 MG tablet 25 mg PO DAILY RF: 0 lisinopril 40 MG tablet 40 mg PO BID RF: 0 Referrals / Follow Up: Luis Velazco MD [Primary Care Provider] - In 1 Week Disposition Disposition (needs filled in before D/C Order can be placed): Home Health Service Documented by User: Dr. Jeovany Kiser DO 12/30/20 13:16 Providers Date of Admission: 12/28/20 Reason For Visit: UTI, PANCREATITIS, DEBILITY Medications at Discharge Home Medications atorvastatin 10 mg PO QHS 02/25/17 omeprazole 40 mg PO BID 02/25/17 venlafaxine 150 mg PO DAILY 02/25/17 bupropion HCl 75 mg PO BID 07/29/20 buspirone 15 mg PO BID 12/28/20 metoprolol succinate 100 mg PO DAILY 12/28/20 venlafaxine 75 mg PO DAILY 12/28/20 cephalexin 500 mg PO Q8H #15 cap 12/30/20 erythromycin 1 applic EACH EYE TID 5 Days #0 g 12/30/20 Hospital Course Summary of Care Provided Minutes Spent on Discharge: 35 Hospital Course: 70-year-old female presents with weakness. Is likely where the patient's malnutrition plus alcohol abuse and dehydration. Patient was evaluated by therapy but patient declined their services so the plan is for the patient be discharged home with home health care. Patient had stopped drinking several days prior to discharge but was not going to any acute alcohol withdr awal. Urinalysis fairly unremarkable urine culture grew out gram-negative rods. She will be discharged with cephalexin. Physical Exam Const alert and oriented x3 Neuro Sensorium / Orientation: awake and alert ABG / Lab / Microbiology Data Result Diagrams: 12/30/20 07:15 12/30/20 07:15 Discharge Plan Admission Admit Date/Time: 12/28/20 18:15 Primary Reason for Your Visit: Weakness Attending Provider: Jeovany Kiser Primary Care Provider: Luis Velazco Discharge Orders/Prescriptions Prescriptions: New erythromycin 5 mg/gram (0.5 %) Ointment 1 applic EACH EYE TID 5 Days Qty: 0 RF: 0 cephalexin 500 mg capsule 500 mg PO Q8H Qty: 15 RF: 0 Continued atorvastatin 10 MG tablet 10 mg PO QHS RF: 0 omeprazole 20 MG capsule,delayed release(DR/EC) 40 mg PO BID RF: 0 venlafaxine 150 MG tablet extended release 24hr 150 mg PO DAILY RF: 0 bupropion HCl 75 MG tablet 75 mg PO BID RF: 0 venlafaxine 37.5 mg capsule,extended release 24hr 75 mg PO DAILY RF: 0 metoprolol succinate 100 mg tablet extended release 24 hr 100 mg PO DAILY RF: 0 buspirone 15 mg tablet 15 mg PO BID RF: 0 Discontinued spironolactone 25 MG tablet 25 mg PO DAILY RF: 0 lisinopril 40 MG tablet 40 mg PO BID RF: 0 Referrals / Follow Up: Luis Velazco MD [Primary Care Provider] - In 1 Week Disposition Disposition (needs filled in before D/C Order can be placed): Home Health Serv ice Charges/Coding Visit Charges Inpatient E&M: 17651 Disch Hosp
--- NOTE | 2020-12-30 14:03 | NURSING ---
discussed with pt the [facility], pt still would prefer to go home to be able to take care of her dogs. will get script for walker prior to DC.
[2020-12-30 14:23] LABS: Lipase 706 U/L (73-393)
--- NOTE | 2020-12-30 14:48 | NURSING ---
Addendum entered by Venus Juarez 12/30/20 17:48: walker delivered to room by Deepa at 1600, pt daughter at bedside, called [facility] to notify them of pt discharge, faxed DC instructions to them. also called Merna Sinha from [facility] but there was no identification on the voicemail option, left message asking for return phone call. Original Note: faxed yesenia script to [facility] per green-sheet instructions. called [facility] to follow up on fax and was sent to answering service which informed me that [facility] is not accepting referrals over the weekend. walker script faxed to [facility]
--- NOTE | 2020-12-30 19:48 | CASEMGMT ---
SW Note Referral Source: [facility] Referral Reason: Discharge plan SW called [facility] and was advised patient had been discharged. SW called [facility] and left message for Merna Sinha ) that patient was discharged. No further SW needs at this time. Luz Elena ROSE
[2021-01-02 20:11] LABS: Vitamin D 1,25-Dihydroxy 37.5 pg/mL (19.9-79.3)
== END 2020-12-30 17:10 | disposition home health service (06) | DRG 439 ==
LOC: ED 18:11 → MS3 12-29 07:08
PROVIDERS: Nurse Practitioner Family; Admitting Provider Hospitalist; Emergency Provider Emergency Medicine; PCP Family Medicine
DX: K85.20 Alcohol induced acute pancreatitis without necrosis or infection (principal); N17.9 Acute kidney failure, unspecified; N30.00 Acute cystitis without hematuria; E87.2 Acidosis; E87.1 Hypo-osmolality and hyponatremia; E86.0 Dehydration; R29.6 Repeated falls; E86.1 Hypovolemia; F41.9 Anxiety disorder, unspecified; K21.9 Gastro-esophageal reflux disease without esophagitis; I10 Essential (primary) hypertension; R74.01 Elevation of levels of liver transaminase levels; F10.20 Alcohol dependence, uncomplicated; F17.210 Nicotine dependence, cigarettes, uncomplicated; E78.5 Hyperlipidemia, unspecified; D64.9 Anemia, unspecified; F32.9 Major depressive disorder, single episode, unspecified; Z66 Do not resuscitate; Z83.3 Family history of diabetes mellitus; Z90.49 Acquired absence of other specified parts of digestive tract; Z90.710 Acquired absence of both cervix and uterus; Z96.619 Presence of unspecified artificial shoulder joint; B96.89 Other specified bacterial agents as the cause of diseases classified elsewhere; H10.9 Unspecified conjunctivitis; Y90.9 Presence of alcohol in blood, level not specified
CPT/HCPCS: 36415; 70450; 71045; 80048; 80053; 81001; 82652; 83605; 83690; 83735; 84100; 84443; 84484; 85025; 85610; 85730; 87040; 87077; 87086; 87088; 87186; 93005; 97110; 97162; 97166; 97530; 97802; 99285; J7030; J7050; P9612; A4216; J2405

== ENCOUNTER 2021-01-04 09:17 | Emergency (ER) | payer MEDICARE, SELFPAY ==
[2020-12-28 19:58] VITALS: BMI 21.2
[2021-01-04 09:18] VITALS: BP 124/75; PULSE 87; RESP 16; TEMP 36.1; O2SAT 99; BMI 21.2
[2021-01-04 09:28] VITALS: BP 124/75; PULSE 87; RESP 16; TEMP 36.1; O2SAT 99
--- NOTE | 2021-01-04 09:53 | EKG12_ITS ---
Test Reason : SWELLING Blood Pressure : / mmHG Vent. Rate : 082 BPM Atrial Rate : 083 BPM P-R Int : 000 ms QRS Dur : 076 ms QT Int : 372 ms P-R-T Axes : 000 036 036 degrees QTc Int : 434 ms Accelerated Junctional rhythm Abnormal ECG Confirmed by SHANTELL DE PAZ MD ([id number]), desk editor BELTRAN ARELLANO ([id number]) on 01/08/2021 1:02:40 PM Referred By: IVONE Confirmed By:SHANTELL DE PAZ MD
--- NOTE | 2021-01-04 09:53 | RAD_ITS ---
STUDY: X-RAY CHEST REASON FOR EXAM: Female, 70 years old. chest pain TECHNIQUE: AP COMPARISON: 12/28/2020 FINDINGS: The lungs are clear and expanded. There is no demonstrated pleural abnormality. Normal size heart. Normal mediastinum and pete. Normal visualized pulmonary arteries. Atherosclerosis and tortuosity of the thoracic aorta. Thoracic scoliosis stable. Right shoulder replacement. There is no demonstrated abnormality of the visualized soft tissue structures of the upper abdomen. RAD/Chest 1 View (Portable) IMPRESSION: Stable, nonacute portable x-ray examination of the chest. Electronically Signed: Rock Georges MD (Brooks) at 11:30 EDT , Service support ,
--- NOTE | 2021-01-04 09:54 | EX.ED.DYSGE1 ---
HPI History of Present Illness Chief Complaint: Edema Narrative Narrative: 70-year-old female presenting with dyspnea on exertion as well as lower extremity swelling. She states that this started after her previous hospitalization. She states that she had a urinary tract infection, was dehydrated, had pancreatitis. She states that she was drinking previously due to depression after having a right shoulder surgery. She was able to detox herself at home. She states she no longer drinks alcohol. She does smoke daily. She has a past medical history of hypertension and hyperlipidemia. She denies fever, chills, cough. She does describe generalized weakness and leg pain when she stands. Patient admits to a couple episodes of sharp chest pain that she localizes to her sternum. She does not get lightheaded or dizzy with this. [facility] Medical History Alcoholism Anxiety Depression GERD (gastroesophageal reflux disease) HTN (hypertension) Hx of small bowel obstruction Home Medications atorvastatin 10 mg PO QHS 02/25/17 [History Last Taken 2 Days Ago ~12/26/20] omeprazole 40 mg PO BID 02/25/17 [History Last Taken 2 Days Ago ~12/26/20] venlafaxine 150 mg PO DAILY 02/25/17 [History Last Taken 2 Days Ago ~12/26/20] bupropion HCl 75 mg PO BID 07/29/20 [History Last Taken 2 Days Ago ~12/26/20] buspirone 15 mg PO BID 12/28/20 [History Last Taken 2 Days Ago ~12/26/20] metoprolol succinate 100 mg PO DAILY 12/28/20 [History Last Taken 2 Days Ago ~12/26/20] venlafaxine 75 mg PO DAILY 12/28/20 [History Last Taken 2 Days Ago ~12/26/20] cephalexin 500 mg PO Q8H #15 cap 12/30/20 [Rx Last Taken Unknown] erythromycin 1 applic EACH EYE TID 5 Days #0 g 12/30/20 [Rx Last Taken Unknown] apixaban [Eliquis DVT-PE Treat 30D Start] 5 mg PO BID #74 tab 01/04/21 [Rx Last Taken Unknown] Allergy/AdvReac Type Severity Reaction Status Date / Time No Known Allergies Allergy Verified 01/04/21 09:19 Family History Father Cancer Lung and stomach Mother Diabetes Surgical History H/O shoulder replacement History of appendectomy History of hemorrhoidectomy History of hysterectomy History of intestinal surgery Hx of cholecystectomy Hx of tonsillectomy Social History household members: other details: Lives alone Smoking Status: Former smoker quit date: 12/21/20 alcohol intake: former details: Quit 4 days ago, previous daily half gallon vodka per day use substance use type: does not use ROS ROS ED Constitutional Constitutional ED: Denies chills, fever(s) or sweats Eyes Eyes: Denies blurry vision or diplopia ENT ENT ED: Denies rhinorrhea or sore throat Cardiovascular Cardiovascular: Reports chest pain Respiratory/Chest Respiratory/Chest: Reports dyspnea and dyspnea on exertion; Denies cough Gastrointestinal Gastrointestinal: Reports nausea; Denies abdominal pain, constipation, diarrhea or vomiting Genitourinary Genitourinary ED: Denies dysuria or hematuria Musculoskeletal Musculoskeletal: Denies arthralgias or myalgias Integumentary Denies abscess or rash Neurologic Neurologic: Denies headache(s) or paresthesias EXAM Physical Exam Const Vital Signs: 01/04/21 09:18 01/04/21 09:28 01/04/21 10:40 Temperature 96.9 F L 96.9 F L Temperature Source Temporal Temporal Pulse Rate 87 87 Respiratory Rate 16 16 Respiratory Effort Normal Non-Labored Blood Pressure 124/75 H 124/75 H Blood Pressure Mean 91 91 Pulse Ox 99 99 Oxygen Delivery Method Room Air Room Air Room Air 01/04/21 11:08 01/04/21 13:23 Temperature 97.5 F L 97.7 F L Temperature Source Temporal Temporal Pulse Rate 81 100 Respiratory Rate 20 H 18 Respiratory Effort Blood Pressure 128/89 H 149/91 H Blood Pressure Mean 102 110 Pulse Ox 99 96 Oxygen Delivery Method Room Air Room Air Positive well nourished General Appearance ED: NAD; Negative for pallor HEENT Reports moist mucous membranes Negative for trauma Eyes PERRL and EOMs intact bilaterally General Eye ED: Negative for pale conjunctiva or scleral icterus Neck no lymphadenopathy and supple Chest Wall inspection of chest normal and palpation of chest normal Resp normal respiratory effort and clear to auscultation bilaterally Cardio regular rate and regular rhythm GI normal to inspection, nondistended, normoactive bowel sounds Extremity General Extremety ED: Yes edema and tenderness General Extremity: edema Neuro oriented x3 and CN's II-XII intact bilaterally Sensorium / Orientation: alert Psych mental status grossly normal Skin General Skin Exam: Negative for jaundice or pallor MDM MDM MDM Narrative Medical decision making narrative: Patient presenting with dyspnea as well as intermittent sharp chest pain and lower extremity edema bilaterally. She states this is been new since she left the hospital. She called her primary care physician yesterday and was told to come to the ER however she waited till this morning. Her vital signs are stable and she is afebrile. Patient had EKG performed on arrival which shows a sinus rhythm at [address] elevation or depression on my interpretation. Chest x-ray on my interpretation shows no acute cardiopulmonary process. Her lab work is actually improved and her hemoglobin is now increased. Her creatinine is improved 2.99. Her lipase is within normal limits now. Her LFTs are normalizing. EtOH is negative. BNP is 467.there is no evidence of heart failure on her chest x-ray. Patient's D-dimer was elevated at 2.38 and she had CTA of the chest which showed a pulmonary nodule but did not show any dissection or pulmonary emboli. Since her D-dimer was positive and she has lower extremity swelling I did bilateral lower extremity duplexes and she was positive for DVT in both. She will be started on Eliquis for home. First dose was given in the ED. She is given return precautions. I did discuss the case with Dr. Velazco. He will follow up with her on an outpatient basis. Impression: 1. Bilateral lower extremity DVT 2. Dyspnea 3. Chest pain Lab Data Labs: Laboratory Results - last 24 hr 01/04/21 01/04/21 01/04/21 10:05 10:05 10:05 WBC 5.6 RBC 2.82 L Hgb 9.2 L Hct 28.7 L MCV 101.8 H MCH 32.6 H MCHC 32.1 RDW Std Deviation 74.5 H RDW Coeff of Jus 19.7 H Plt Count 376 MPV 9.7 Immature Gran % (Auto) 0.500 Neut % (Auto) 59.0 Lymph % (Auto) 20.3 [place] % (Auto) 18.0 H Eos % (Auto) 0.9 Baso % (Auto) 1.3 H Absolute Neuts (auto) 3.3 Absolute Lymphs (auto) 1.13 Nucleated RBC % 0 Anisocytosis 1+ D-Dimer Quant (PE/DVT) 2.38 H* Sodium 137 Potassium 3.8 Chloride 104 Carbon Dioxide 22.0 Anion Gap 11 BUN 9 Creatinine 0.99 Estim Creat Clear Calc 44.37 Est GFR (MDRD) Af Amer 72 Est GFR (MDRD) Non-Af 59 L BUN/Creatinine Ratio 9.1 L Glucose 89 Calcium 8.5 Total Bilirubin 0.30 Direct Bilirubin 0.14 AST 35 ALT 40 Alkaline Phosphatase 154 H Troponin I High Sens 10.4 B-Natriuretic Peptide Total Protein 6.0 L Albumin 2.7 L Globulin 3.3 Lipase 197 Ethyl Alcohol 01/04/21 01/04/21 10:05 10:05 WBC RBC Hgb Hct MCV MCH MCHC RDW Std Deviation RDW Coeff of Jus Plt Count MPV Immature Gran % (Auto) Neut % (Auto) Lymph % (Auto) [place] % (Auto) Eos % (Auto) Baso % (Auto) Absolute Neuts (auto) Absolute Lymphs (auto) Nucleated RBC % Anisocytosis D-Dimer Quant (PE/DVT) Sodium Potassium Chloride Carbon Dioxide Anion Gap BUN Creatinine Estim Creat Clear Calc Est GFR (MDRD) Af Amer Est GFR (MDRD) Non-Af BUN/Creatinine Ratio Glucose Calcium Total Bilirubin Direct Bilirubin AST ALT Alkaline Phosphatase Troponin I High Sens B-Natriuretic Peptide 466.7 H Total Protein Albumin Globulin Lipase Ethyl Alcohol < 3.0 Radiography Diagnostic Testing: Radiology Impression Chest X-Ray 01/04/21 09:53 IMPRESSION: Stable, nonacute portable x-ray examination of the chest. Electronically Signed: Rock Georges MD (Brooks) at 11:30 EDT , Service support , Chest CTA 01/04/21 11:15 IMPRESSION: 1. No central or segmental pulmonary embolism. 2. 6 mm nodule in the right upper lobe. No comparison study. Fleischner Society Guidelines for low-risk patients recommend follow-up chest CT at 6-12 months. If unchanged consider an additional follow-up CT at 18-24 months. For high-risk patients (smoking history or other known risk factors) initial follow-up chest CT at 6-12 months and if unchanged, 18-24 months. Electronically Signed: Rock Georges MD (Brooks) at 11:33 EDT , Service support , Discharge Plan Triage Chief Complaint: Edema ED Provider: Mike Boogie Dx/Rx/DC Orders Instructions: ED Deep Vein Thrombosis (DVT), ED Dyspnea, ED Pulmonary Nodule, Solitary Prescriptions: New EliSnapshot Interactive DVT-PE Treat 30D Start 5 mg (74 tabs) tablets,dose pack 5 mg PO BID Qty: 74 RF: 0 No Action atorvastatin 10 MG tablet 10 mg PO QHS RF: 0 omeprazole 20 MG capsule,delayed release(DR/EC) 40 mg PO BID RF: 0 venlafaxine 150 MG tablet extended release 24hr 150 mg PO DAILY RF: 0 bupropion HCl 75 MG tablet 75 mg PO BID RF: 0 venlafaxine 37.5 mg capsule,extended release 24hr 75 mg PO DAILY RF: 0 metoprolol succinate 100 mg tablet extended release 24 hr 100 mg PO DAILY RF: 0 buspirone 15 mg tablet 15 mg PO BID RF: 0 erythromycin 5 mg/gram (0.5 %) Ointment 1 applic EACH EYE TID 5 Days Qty: 0 RF: 0 cephalexin 500 mg capsule 500 mg PO Q8H Qty: 15 RF: 0 Primary Care Provider: Luis Velazco Referrals: Luis Velazco MD [Primary Care Provider] - Disposition Disposition: Home, Self Care Discharge Date/Time: 01/04/21 13:33
[2021-01-04 10:19] LABS: Absolute Lymphocyte Count 1.13 X10^3/uL (0.83-4.51); Absolute Neutrophil Count 3.3 X10^3/uL (2.0-7.7); Basophil# 0.07 X10^3/uL; Basophil% 1.3 % (0-1); Eosinophil# 0.05 X10^3/uL; Eosinophils% 0.9 % (0-5); Hematocrit 28.7 % (37-47); Hemoglobin 9.2 g/dL (12.0-15.0); Lymphocyte # 1.13 X10^3/ul (0.83-4.51); Lymphocyte % 20.3 % (19-41); Mean Corp Hgb Conc 32.1 g/dL (32-36); Mean Corpuscular Hgb 32.6 pg (27.0-32.0); Mean Corpuscular Volume 101.8 fL (81-99); Mean Platelet Vol. 9.7 fl (6.2-12.0); NRBC Flagged by Analyzer 0 % (0-5); Neutrophil # 3.28 X10^3/uL (2.7-7.7); POSITIVE MORPHOLOGY YES; Platelet Count 376 K/mm3 (150-450); RBC Distribution Width CV 19.7 % (11.6-14.6); RBC Distribution Width SD 74.5 fl (35.1-43.9); Red Blood Count 2.82 M/mm3 (4.2-5.4); White Blood Count 5.6 K/mm3 (4.4-11.0)
[2021-01-04 10:20] LABS: Differential Indicated SCAN CRITERIA MET
[2021-01-04 10:30] LABS: D-Dimer Quantitative (DVT/PE) 2.38 FEU/ug/m (0.27-0.49)
[2021-01-04] MEDS: Morphine 4 MG/ML Syringe IV (10:36)
[2021-01-04 10:37] LABS: AST(SGOT) 35 U/L (15-37); Alanine Aminotransfer ALT/SGPT 40 U/L (13-56); Albumin, Serum 2.7 g/dL (3.2-5.0); Alkaline Phosphatase 154 U/L (45-117); Anion Gap 11 (5-15); BUN 9 mg/dL (7-18); BUN/Creat Ratio 9.1 RATIO (10-20); Bilirubin, Direct 0.14 mg/dL (0.00-0.30); Calcium,Total 8.5 mg/dL (8.5-10.1); Chloride 104 mmol/L (98-107); Creatinine, Serum 0.99 mg/dL (0.55-1.02); EST Glomerular Filtration Rate 59 mL/min (>60); Est Glom Filt Rate - Afr Amer 72 mL/min (>60); Estimated Creatinine Clearance 44.37 ml/min; Globulin 3.3 g/dL (2.2-4.2); Glucose 89 mg/dL (74-106); Lipase 197 U/L (73-393); Potassium 3.8 mmol/L (3.5-5.1); Sodium Level 137 mmol/L (136-145); Troponin-I HS 10.4 pg/mL (3.0-53.7)
[2021-01-04] MEDS: Ondansetron 4 MG/2 ML Vial IV (10:37)
[2021-01-04 10:43] LABS: Anisocytosis 1+
[2021-01-04 10:57] LABS: Alcohol, Blood (Medical)-Serum < 3.0 mg/dL
[2021-01-04 11:00] LABS: BNP,B-Type NATRIURETIC PEPTIDE 466.7 pg/mL (0-100)
[2021-01-04 11:08] VITALS: BP 128/89; PULSE 81; RESP 20; TEMP 36.4; O2SAT 99
--- NOTE | 2021-01-04 11:15 | CT_ITS ---
STUDY: CTA CHEST REASON FOR EXAM: Female, 70 years old. chest pain and dyspnea RADIATION DOSAGE (If Supplied By Facility): CTDIvol = ( 6.26 ) mGy, DLP = ( 171.28 ) mGycm TECHNIQUE: The examination was performed with the intravenous administration of IV 100mL Isovue-300. Post-processing of the angiographic images was performed, with multiplanar reformation and 3D reconstruction. Individualized dose optimization techniques were used for this CT. COMPARISON: None. FINDINGS: Normal enhancement of the main pulmonary artery and right and left pulmonary arteries. Normal enhancement of the bilateral peripheral pulmonary arteries. There is no demonstrated pulmonary embolism. Mild atherosclerosis of the thoracic aorta extending into the upper abdominal aorta. There is no demonstrated aortic dissection. Normal heart and pericardium. Normal mediastinum. Normal hilar regions. Normal visualized trachea and bronchi. The lungs are hyper expanded, with flattening of the hemidiaphragms. There are central emphysematous blebs in the bilateral lungs. Well marginated round nodule of the posterior right upper lobe measures 6 mm on image 140 of series 2. Mild atelectasis in the lung bases. Normal pleura. Normal chest wall structures. Right shoulder replacement. Degenerative changes of the thoracic spine. There is a small, circumscribed, smooth, low attenuation left adrenal mass, consistent with an adrenal adenoma, stable since 2017. CT/CTA Chest W/WO Contrast IMPRESSION: 1. No central or segmental pulmonary embolism. 2. 6 mm nodule in the right upper lobe. No comparison study. Fleischner Society Guidelines for low-risk patients recommend follow-up chest CT at 6-12 months. If unchanged consider an additional follow-up CT at 18-24 months. For high-risk patients (smoking history or other known risk factors) initial follow-up chest CT at 6-12 months and if unchanged, 18-24 months. Electronically Signed: Rock Georges MD (Brooks) at 11:33 EDT , Service support ,
--- NOTE | 2021-01-04 12:06 | VDLE_ITS ---
Reason For Study: swelling RIGHT LEFT GSV is normal. GSV is normal. CFV is compressible, spontaneous, phasic, CFV is compressible, spontaneous, phasic, competent and demonstrates normal competent, and demonstrates normal augmentation. augmentation. FV is compressible, spontaneous, phasic, FV is compressible, spontaneous, phasic, competent and demonstrates normal competent and demonstrates normal augmentation. augmentation. POP V is compressible, spontaneous, phasic, POP V is compressible, spontaneous, phasic, competent and demonstrates normal competent and demonstrates normal augmentation. augmentation. T/P Trunk is compressible. T/P Trunk is compressible. PTV is compressible. LT PerV is compressible. Peroneal V and Soleus V are dilated and PTV is dilated and noncompressible. noncompressible. Procedure This is a venous duplex using B-mode, color flow and spectral Doppler. Exam performed portable in ED. The exam was abbreviated due to the COVID 19 protocol. The exam was diagnostic. A preliminary report was called and/or faxed to Dr. Boogie. VL/Venous Duplex US - Onel Extrem Interpretation Summary Acute deep venous thrombosis right peroneal and soleus veins Acute deep venous thrombosis left posterior tibial vein Patent and compressible bilateral great saphenous veins COVID-19 protocol utilized Ordering Physician: Mike Boogie Performed By: Jaycob Gaffney RVAndree
[2021-01-04 13:23] VITALS: BP 149/91; PULSE 100; RESP 18; TEMP 36.5; O2SAT 96
[2021-01-04] MEDS: APIXABAN 5 MG TABLET 10 MG PO (13:25)
== END 2021-01-04 13:33 | disposition home or self-care (01) ==
PROVIDERS: Emergency Provider Student in an Organized Health Care Education/Training Program; PCP Family Medicine
DX: I82.403 Acute embolism and thrombosis of unspecified deep veins of lower extremity, bilateral (principal); R06.09 Other forms of dyspnea; R07.9 Chest pain, unspecified; I10 Essential (primary) hypertension; E78.5 Hyperlipidemia, unspecified; F41.9 Anxiety disorder, unspecified; Z87.891 Personal history of nicotine dependence; Z79.899 Other long term (current) drug therapy
CPT/HCPCS: 71045; 71275; 80048; 80076; 82077; 83690; 83880; 84484; 85025; 85379; 93005; 93970; 96374; 96375; 99285; Q9967; A4216; J2405

== ENCOUNTER → 2021-05-22 13:06 | Outpatient (CLI) | payer MEDICARE, SELFPAY ==
--- NOTE | 2021-05-22 13:11 | EKG12_ITS ---
Test Reason : PRE OP Blood Pressure : / mmHG Vent. Rate : 132 BPM Atrial Rate : 132 BPM P-R Int : 114 ms QRS Dur : 084 ms QT Int : 310 ms P-R-T Axes : 062 058 033 degrees QTc Int : 459 ms Sinus tachycardia with Premature supraventricular complexes and with occasional Premature ventricular complexes Otherwise normal ECG Confirmed by BALDEV MAIER, SHANTELL ([id number]), health editor BELTRAN ARELLANO ([id number]) on 05/23/2021 7:41:37 AM Referred By: Juan Caballero Confirmed By:SHANTELL DE PAZ MD
--- NOTE | 2021-05-22 13:50 | RAD_ITS ---
INDICATION: PRE OP EXAMINATION/TECHNIQUE: X-RAY - XR Chest 2 Views COMPARISON: 01/04/2021 FINDINGS: LIFE-SUPPORT AND LINES: 1. None HEART AND VESSELS: The cardiac silhouette, pulmonary vasculature have normal appearance. No evidence of congestive failure. LUNGS AND PLEURAL SPACES: Lungs are clear with the exception of linear atelectasis and pleural parenchymal scar at LEFT lung base. No focal infiltrate noted. No pulmonary mass is noted. MEDIASTINUM AND HILAR REGIONS: No masses adenopathy noted. No areas of calcification. Visualized upper airway is normal in position. BONY ELEMENTS: No acute bony changes noted. Thoracolumbar scoliosis again demonstrated and postoperative changes involving the RIGHT shoulder. RAD/Chest PA and Lateral IMPRESSION: 1. LEFT basilar pleural parenchymal scar in plate atelectasis. 2. No evidence of acute cardiopulmonary process Electronically Signed: Carlos Shelby MD at 14:22 EST Tel , Service support ,
[2021-05-22 15:22] LABS: Absolute Lymphocyte Count 0.96 X10^3/uL (0.83-4.51); Absolute Neutrophil Count 5.1 X10^3/uL (2.0-7.7); Basophil# 0.05 X10^3/uL; Basophil% 0.7 % (0-1); Eosinophil# 0.02 X10^3/uL; Eosinophils% 0.3 % (0-5); Hematocrit 34.4 % (37-47); Hemoglobin 10.8 g/dL (12.0-15.0); Lymphocyte # 0.96 X10^3/ul (0.83-4.51); Lymphocyte % 13.1 % (19-41); Mean Corp Hgb Conc 31.4 g/dL (32-36); Mean Corpuscular Hgb 27.6 pg (27.0-32.0); Mean Corpuscular Volume 87.8 fL (81-99); Mean Platelet Vol. 10.4 fl (6.2-12.0); Monocyte# 1.19 X10^3/uL; Monocyte% 16.3 % (0-10); NRBC Flagged by Analyzer 0.4 % (0-5); Neutrophil # 5.06 X10^3/uL (2.7-7.7); Neutrophil % 69.1 % (47-70); Platelet Count 229 K/mm3 (150-450); RBC Distribution Width CV 18.4 % (11.6-14.6); RBC Distribution Width SD 58.9 fl (35.1-43.9); Red Blood Count 3.92 M/mm3 (4.2-5.4); White Blood Count 7.3 K/mm3 (4.4-11.0)
[2021-05-22 15:54] LABS: Anion Gap 10 (5-15); BUN 12 mg/dL (7-18); BUN/Creat Ratio 10.3 RATIO (10-20); Calcium,Total 9.3 mg/dL (8.5-10.1); Chloride 95 mmol/L (98-107); Creatinine, Serum 1.17 mg/dL (0.55-1.02); EST Glomerular Filtration Rate 49 mL/min (>60); Est Glom Filt Rate - Afr Amer 59 mL/min (>60); Glucose 109 mg/dL (74-106); Potassium 3.1 mmol/L (3.5-5.1); Sodium Level 132 mmol/L (136-145)
== END ==
LOC: PSN 13:08
PROVIDERS: PCP Family Medicine; Referring Provider Physician Assistant Surgical; Visit Provider Physician Assistant Surgical
DX: Z01.818 Encounter for other preprocedural examination (principal); Z01.810 Encounter for preprocedural cardiovascular examination; Z01.811 Encounter for preprocedural respiratory examination
CPT/HCPCS: 36415; 71046; 80048; 85025; 93005

== ENCOUNTER → 2022-08-29 | Outpatient (CLI) | payer MEDICARE, MEDICAID, SELFPAY ==
--- NOTE | 2022-08-29 17:10 | MRI_ITS ---
EXAM: MR LEFT UPPER EXTREMITY WITHOUT INTRAVENOUS CONTRAST, ELBOW CLINICAL INDICATION: ELBOW PAIN TECHNIQUE: Multiplanar and multisequence MR images of the left elbow without intravenous contrast. This report was created using [employer] report generation technology. COMPARISON: None. FINDINGS: LIGAMENTS: MEDIAL COLLATERAL: Unremarkable. Intact. LATERAL COLLATERAL: Unremarkable. Intact. ANNULAR: Unremarkable. Intact. TENDONS: BICEPS: Unremarkable. Intact. BRACHIALIS: Unremarkable. Intact. TRICEPS: Unremarkable. Intact. COMMON FLEXOR: Moderate tendinosis of the common flexor tendon without significant attending. COMMON EXTENSOR: Moderate partial-thickness tearing of the common extensor tendon origin on a background of moderate grade tendinosis. MUSCLES: Muscles are unremarkable. FLUID: Unremarkable. No significant joint effusion. No solid masses or fluid collections. CARTILAGE: Unremarkable. Articular cartilage intact. BONES/JOINTS: Ligaments are intact. No fracture. No bone marrow signal alterations. OTHER SOFT TISSUES: Remaining tendons are intact. The ulnar nerve is normal in the cubital tunnel. OTHER FINDINGS: Neurovascular structures are unremarkable. MRI/Upper Ext Joint Only(Routine) IMPRESSION: Moderate partial-thickness tearing of the common extensor tendon origin on a background of moderate grade tendinosis. Electronically Signed: Stu Baca MD at 2:05 EST ,
== END | disposition home or self-care (01) ==
LOC: MRI 15:57
PROVIDERS: PCP Family Medicine; Visit Provider Specialist
DX: M25.322 Other instability, left elbow (principal)
CPT/HCPCS: 73221

== ENCOUNTER → 2024-10-07 | Outpatient (CLI) | payer MEDICARE, MEDICAID, SELFPAY ==
--- NOTE | 2024-10-07 10:07 | US_ITS ---
PROCEDURE: ULTRASOUND ABDOMEN LIMITED WITH ELASTOGRAPHY REASON FOR EXAM: FATTY LIVER COMPARISON: None. TECHNIQUE: Right upper quadrant abdominal ultrasound. ElastQ Imaging shear wave elastography for non-invasive assessment of liver tissue stiffness was performed. FINDINGS: LIVER: Size: Unremarkable Length: 12.7 cm Echotexture: Mildly hyperechoic. Contour: Normal Lesions: None identified Elastography: EQI Med: 5.23 kPa EQI Med Hugo: 1.32 m/s GALLBLADDER: Surgically absent. COMMON BILE DUCT: 1.2 cm. Mildly dilated intrahepatic ducts. . PANCREAS: Not visualized. Right kidney: 8.8 x 4.1 x 4.5 cm. Renal cortex measures 1.3 cm in thickness. No masses or calcifications. US/ABD Limited w/ Elastography IMPRESSION: 1. F0 to F1, normal to mild probability of clinically significant hepatic fibr osis. 2. Mild steatosis. 3. Status post cholecystectomy. 4. Mild dilatation of the biliary tree most likely compensatory due to cholecy stectomy. 5. Right renal atrophy. Reference Values: SRU <1.37 m/s (5.7kPa): No to mild fibrosis 1.37 m/s - 2.2 m/s: Moderate to severe fibrosis >2.2 m/s (15kPa): Significant fibrosis / cirrhosis METAVIR Score F2 or higher: 1.34 m/s (5.7kPa) F3 or higher: 1.55 m/s (7.3kPa) F4: 1.80 m/s (10kPa) Reading Location: [place] [id number]
== END | disposition home or self-care (01) ==
LOC: US 10:05
PROVIDERS: PCP Family Medicine; Referring Provider Nurse Practitioner Family; Visit Provider Nurse Practitioner Family
DX: K76.0 Fatty (change of) liver, not elsewhere classified (principal)
CPT/HCPCS: 76705; 76981